=== PATIENT | male | born 1980 | race Caucasian/White ===

== ENCOUNTER 2022-05-18 04:24 | Emergency (ER) | payer MEDICAID, SELFPAY ==
[2022-05-18 04:28] VITALS: BP 152/99; PULSE 96; RESP 20; TEMP 36.2; O2SAT 98
--- NOTE | 2022-05-18 05:05 | ED.GENADUL_ITS ---
Discharge Plan Disposition Patient Disposition: HOME Condition: Stable Discharge Details Clinical Impression: Cellulitis of face, Facial skin lesion Primary Care Provider: Yakelin Berkowitz ED Provider: Bert Bartholomew Home Meds and New Rx's Prescriptions: New cephalexin 500 mg tablet 500 mg PO QID Qty: 28 0RF doxycycline hyclate 100 mg capsule 100 mg PO BID Qty: 14 0RF Continued gabapentin 300 mg Tablet 300 mg PO 3XD bupropion HCl 150 mg tablet extended release 24 hr 150 mg PO QDAY buprenorphine-naloxone [Suboxone] 8-2 mg film sublingual QDAY Rx Instructions: 2 film sublingually Discharge Instructions Instructions: Cellulitis (ED) Additional Instructions: Please take antibiotics as prescribed. Please contact your primary care physician to arrange follow-up. Please follow-up with dermatology. Call for an appointment. Return to the ER immediately for any worsening or new concerning symptoms. Referrals: Yakelin Berkowitz [Primary Care Provider] - Bhaskar Castro MD [MD CONSULTING PHYSICIAN] - Medical Decision Making 42-year-old male here with chronic facial skin lesion. Concern for acute cellulitis. Patient does have history of MRSA. I will cover with Keflex and doxycycline. We will also consider the potential for fungal infection or other chronic inflammatory condition. I think patient would benefit from dermatology evaluation. Patient is now living in the area. I will refer him to Dr. Castro at [facility]. Usual customary discharge instructions reviewed with the patient. Initial dose of antibiotic was provided here. Patient was given Tylenol for discomfort. HPI General Mode of arrival: ambulatory . Date/Time Provider Initiated Documentation: 05/18/22 04:26 . Limitations to Documentation: no limitations . Information obtained by: patient . HPI Narrative: 42-year-old male presents with chief complaint of skin lesion. Patient notes he has had lesion on his chin that has been waxing and waning for months. He states he first noticed the sore approximately 9 months ago. He has received unknown treatment i in the past for this. He states that he tries to scrub the area when he showers to clean it and also picks at it when he has had pustules. He has no associated fever. No other skin lesions. Patient does note that he has had diagnosis of MRSA in the past. Related Data Home Medications Medication Instructions Recorded Confirmed buprenorphine 8 mg-naloxone 2 mg sublingual QDAY 05/18/22 sublingual film (Suboxone) bupropion HCl 150 mg 24 hr tablet, 150 mg PO QDAY 05/18/22 05/18/22 extended release cephalexin 500 mg tablet 500 mg PO QID #28 tabs 05/18/22 doxycycline hyclate 100 mg capsule 100 mg PO BID #14 caps 05/18/22 gabapentin 300 mg tablet 300 mg PO 3XD 05/18/22 05/18/22 Previous Rx's Medication Instructions Recorded cephalexin 500 mg tablet 500 mg PO QID #28 tabs 05/18/22 doxycycline hyclate 100 mg capsule 100 mg PO BID #14 caps 05/18/22 Allergies Allergy/AdvReac Type Severity Reaction Status Date / Time atomoxetine HCl Allergy Mild Unverified 05/18/22 05:08 [From Strattera] ketorolac tromethamine Allergy Unknown Anaphylaxsi Unverified 05/18/22 05:08 [From Toradol] s General Stated Complaint: FacialProb CASIE: 4 Review of Systems All systems reviewed & are unremarkable except as noted in HPI and below Constitutional Constitutional: Denies fever(s) Integumentary/Breasts Skin/Breast: Reports as per HPI PFSH All Active Problems Cellulitis of face (Acute) Facial skin lesion (Acute) Social History Smoking/Tobacco Use Status: Current-Occasional Tobacco Type: cigarettes Smoking risk assessment performed?: Yes Alcohol Intake: former Drug use: Occasionally Substance use type: former substance user, marijuana, crack/cocaine, heroin, opiates and painkillers Do you feel safe at home: Yes Do you feel safe in your relationship?: Yes Exam Const General: cooperative and no acute distress HENMT Head: normocephalic Mouth: oral mucosae normal and moist mucous membranes Eyes Conjunctivae: normal conjunctivae Sclera: normal sclerae Neck Neck: trachea midline and supple Skin Lesions: lesion noted (see below) Other: Large weeping raised shallow ulcer on his chin with no fluctuance, mild surrounding induration and erythema Course Vital Signs Vital signs: Vital Signs Temperature 36.2 C L 05/18/22 04:28 Pulse 96 H 05/18/22 04:28 Respiratory Rate 20 05/18/22 04:28 Blood Pressure 152/99 H 05/18/22 04:28 Pulse Oximetry 98 05/18/22 04:28 Temperature 36.2 C L 05/18/22 04:28 Temperature Source Tympanic 05/18/22 04:28 Pulse 96 H 05/18/22 04:28 Respiratory Rate 20 05/18/22 04:28 Blood Pressure 152/99 H 05/18/22 04:28 Blood Pressure Position Sitting 05/18/22 04:28 Pulse Oximetry 98 05/18/22 04:28 Oxygen Delivery Method Room Air 05/18/22 04:28 Oxygen Flow Rate 0 05/18/22 04:28 Pain Level 6 05/18/22 04:45 PAWSS Have you Been Recently Intoxicated or Drunk Within the Last 30 days?: Yes Have you Ever Experienced Previous Episodes of Alcohol Withdrawal?: Yes Have you ever Experienced Withdrawal Seizures?: No Have you ever Experienced Delirium Tremens(DT)s?: Yes Have you ever undergone Alcohol Rehabilitation Treatment (i.e, inpt ot outpatient treatment programs)?: Yes Have you ever Experienced Blackouts?: No Have you ever Combined Alcohol with other Downers within the last 90 days?: Yes Have you ever Combined Alcohol with any other Substance of Abuse during the last 90 days?: Yes Positive Blood Alcohol level on Presentation? [PCS.BAL]: No Evidence of Increased Autonomic Activity (i.e. HR>120, tremor, sweating, agitation, nausea)?: No Result: 6
[2022-05-18] MEDS: Cephalexin 500 MG CAP PO (05:24)
[2022-05-18] MEDS: Doxycycline Hyclate 100 MG CAP PO (05:25)
[2022-05-18] MEDS: Acetaminophen 325 MG TAB 650 MG PO (05:25)
[2022-05-18 05:28] VITALS: BP 178/92; PULSE 91; RESP 16; TEMP 36.4; O2SAT 98
--- NOTE | 2022-05-19 11:58 | CMACTNOTE_ITS ---
- If Service Date Differs Date of service: 05/19/22 Time of Service: 11:58 Care Management Activity Note Chapo is seen in the ED for cellulitis of the face and facial skin lesion. At the request of ED provider, [facility] coordinates a referral to Dr. Castro at [facility] to assist Chapo in obtaining an appointment for further evaluation and treatment. Of note, Chapo does not have a phone number listed in his chart. A letter will be sent to him via mail reminded him to contact Dr. Castro's office to schedule an appointment.
== END 2022-05-18 05:41 | disposition home or self-care (01) ==
PROVIDERS: Emergency Provider Student in an Organized Health Care Education/Training Program; PCP Nurse Practitioner Family
DX: L03.211 Cellulitis of face (principal); L98.499 Non-pressure chronic ulcer of skin of other sites with unspecified severity; F17.210 Nicotine dependence, cigarettes, uncomplicated
CPT/HCPCS: 99283; 99284

== ENCOUNTER 2022-07-17 09:53 | Emergency (ER) | payer MEDICAID, SELFPAY ==
[2022-07-17 10:07] VITALS: BP 159/87; PULSE 85; RESP 18; TEMP 36.1; O2SAT 98
[2022-07-17 12:24] LABS: Abs Immature Grans 0.03 10^3/uL (0.0-0.06); Absolute Basophil Count 0.06 10^3/uL (0.0-0.2); Absolute Eosinophil Count 0.05 10^3/uL (0.0-0.7); Absolute Lymphocyte Count 1.63 10^3/uL (1.2-3.4); Absolute Monocyte Count 0.61 10^3/uL (0.1-0.8); Absolute Neutrophil Count 7.71 10^3/uL (1.2-6.7); Basophils % 0.6; Eosinophils % 0.5; HCT 37.9 % (40.0-50.0); HGB 13.1 g/dL (13.5-17.5); Immature Grans % 0.3; Lymphocytes % 16.2; MCH 30.3 pg (27.0-33.0); MCHC 34.6 % (32.0-36.0); MCV 88 fL (80-95); MPV 8.9 fL (8.0-11.0); Neutrophils % 76.4; Platelet Count 392 10^3/uL (130-400); RBC 4.32 10^6/uL (4.36-5.78); RDW 11.9 % (11.8-14.1); RDW-SD 38.2 fL; WBC 10.09 10^3/uL (4.4-10.8)
--- NOTE | 2022-07-17 12:47 | ED.GENADUL_ITS ---
Discharge Plan Disposition Patient Disposition: HOME Condition: Stable Discharge Details Clinical Impression: Polysubstance abuse, Homelessness Primary Care Provider: Yakelin Berkowitz ED Provider: Kathleen Fagan Home Meds and New Rx's Prescriptions: Continued gabapentin 300 mg Tablet 300 mg PO 3XD bupropion HCl 150 mg tablet extended release 24 hr 150 mg PO QDAY Discharge Instructions Additional Instructions: Please follow-up with the [facility] and found like you have an appointment and have resources You will receive 1 dose of Suboxone here Please return earlier should you have new or worsening complaints Referrals: Yakelin Berkowitz [Primary Care Provider] - 1 day Discharge Data Discharge Date/Time-TO BE ENTERED AT DEPARTURE: 07/17/22 16:03 Medical Decision Making Patient is alert and oriented, he is not forthcoming with any plan to harm himself and when asked regarding suicidality, he does not actually confirm this The ambulatory steady gait, he does not have evidence of any significant alcohol withdrawal with a blood alcohol of 0, he was observed for approximately 5 hours in the emergency department He was assessed by mental health and started screaming at them and requested voluntary placement at [facility], when asked why patient feels he needs it he states because he does not have a place to stay He does report alcohol and opiate use, he is set up with [facility] for next week reportedly He was offered pain and recovery who evaluates the patient and he refused to speak with them and they arrived He was given a dose of Suboxone to prevent opiate withdrawal Mental health assessment attempted again inpatient appears to be malingering, mental health feels as though the patient stable for discharge home Patient has not endorsed an actual plan to harm himself And that he seems to be speaking in place day He was offered a dose of Suboxone, Xanax, and he was discharged home in stable condition with stable vitals, alert and oriented with any obvious evidence of withdrawal symptoms noted in the emergency department He will follow-up with the [facility] Medical Records Medical records reviewed: Yes I reviewed the patient's medical records. Lab Data Lab results reviewed: Yes I reviewed the patient's lab results. HPI General Date/Time Provider Initiated Documentation: 07/17/22 10:26 . HPI Narrative: 42-year-old male presents with report of suicidal ideation without plan and polysubstance abuse. (2 days ago. Last used alcohol approximately 24 hours ago. Has had tremors with withdrawal but denies any additional symptoms. Specifically denies any seizure history. He states that he is injecting for the past week, prior to that he had a week of sobriety. Denies any attempt to harm Related Data Home Medications Medication Instructions Recorded Confirmed bupropion HCl 150 mg 24 hr tablet, 150 mg PO QDAY 05/18/22 07/17/22 extended release gabapentin 300 mg tablet 300 mg PO 3XD 05/18/22 07/17/22 Allergies Allergy/AdvReac Type Severity Reaction Status Date / Time atomoxetine HCl Allergy Mild Unverified 07/17/22 10:11 [From Strattera] ketorolac tromethamine Allergy Unknown Anaphylaxsi Unverified 07/17/22 10:11 [From Toradol] s General Stated Complaint: PsychEval CASIE: 2 Review of Systems All systems reviewed & are unremarkable except as noted in HPI and below PFSH All Active Problems Polysubstance abuse (Acute) Homelessness (Acute) Social History Smoking/Tobacco Use Status: Current-Occasional Tobacco Type: cigarettes Smoking risk assessment performed?: Yes Alcohol Intake: former Drug use: Never Substance use type: former substance user, marijuana, crack/cocaine, heroin, opiates and painkillers Do you feel safe at home: Yes Do you feel safe in your relationship?: Yes Exam Const General: cooperative, comfortable and no acute distress HENMT Head: normal to inspection Other: Uvula midline, no tongue fasciculations, moist mucous membrane Eyes Pupils: PERRL Resp Effort & Inspection: normal respiratory effort Auscultation: clear to auscultation bilaterally Cardio Rate: regular rate Rhythm: regular rhythm GI Inspection: normal to inspection Other: Nontender abdominal exam Skin General skin exam: no rashes or lesions noted Neuro General: patient alert and patient oriented x3 Other: No tremulousness Ambulatory with steady gait Extrem General: normal to inspection Course Vital Signs Vital signs: Vital Signs Temperature 36.1 C L 07/17/22 10:07 Pulse 85 07/17/22 10:07 Respiratory Rate 18 07/17/22 10:07 Blood Pressure 159/87 H 07/17/22 10:07 Pulse Oximetry 98 07/17/22 10:07 Temperature 36.1 C L 07/17/22 10:07 Temperature Source Tympanic 07/17/22 10:07 Pulse 85 07/17/22 10:07 Respiratory Rate 18 07/17/22 10:07 Respiratory Effort Non-Labored 07/17/22 10:09 Respiratory Pattern Normal 07/17/22 11:47 Blood Pressure 159/87 H 07/17/22 10:07 Blood Pressure Position Sitting 07/17/22 10:07 Pulse Oximetry 98 07/17/22 10:07 Oxygen Delivery Method Room Air 07/17/22 10:07 Oxygen Flow Rate 0 07/17/22 10:07 Pain Level 0 07/17/22 10:07 Lab/Test Results Lab/Test Results: Laboratory Tests Range/Units 07/17/22 12:19 WBC (4.4-10.8) 10^3/uL 10.09 RBC (4.36-5.78) 10^6/uL 4.32 L Hgb (13.5-17.5) g/dL 13.1 L Hct (40.0-50.0) % 37.9 L MCV (80-95) fL 88 MCH (27.0-33.0) pg 30.3 MCHC (32.0-36.0) % 34.6 RDW (11.8-14.1) % 11.9 Plt Count (130-400) 10^3/uL 392 MPV (8.0-11.0) fL 8.9 Immature Gran % 0.3 Neutrophils % 76.4 Lymphocytes % 16.2 Monocytes % 6.0 Eosinophils % 0.5 Basophils % 0.6 Nucleated RBC % (0.0-0.3) % 0.0 Absolute Neutrophils (1.2-6.7) 10^3/uL 7.71 H Absolute Lymphocytes (1.2-3.4) 10^3/uL 1.63 Absolute Monocytes (0.1-0.8) 10^3/uL 0.61 Absolute Eosinophils (0.0-0.7) 10^3/uL 0.05 Absolute Basophils (0.0-0.2) 10^3/uL 0.06 PAWSS Have you Been Recently Intoxicated or Drunk Within the Last 30 days?: Yes Have you Ever Experienced Previous Episodes of Alcohol Withdrawal?: Yes Have you ever Experienced Withdrawal Seizures?: Yes Have you ever Experienced Delirium Tremens(DT)s?: Yes Have you ever undergone Alcohol Rehabilitation Treatment (i.e, inpt ot outpatient treatment programs)?: Yes Have you ever Experienced Blackouts?: Yes Have you ever Combined Alcohol with other Downers within the last 90 days?: Yes Have you ever Combined Alcohol with any other Substance of Abuse during the last 90 days?: Yes Result: 8
[2022-07-17 12:53] LABS: ALT 18 U/L (16-63); AST 22 U/L (15-37); Albumin 3.3 g/dL (3.4-5.0); Alkaline Phosphatase 70 U/L (46-116); Anion Gap 8.3 mmol/L (3-11); BUN 16 mg/dL (7-18); Bilirubin, Total 0.2 mg/dL (0.2-1.0); CO2 27.7 mmol/L (21.0-32.0); CREATININE 0.9 mg/dL (0.70-1.30); Calcium 8.5 mg/dL (8.5-10.1); Chloride 104 mmol/L (98-107); Estimated GFR 108.01 (mL/min/1.73m2); Glucose 131 mg/dL (74-106); Potassium 3.7 mmol/L (3.5-5.1); Sodium 140 mmol/L (136-145); TSH (W/Ref FT4) 0.61 uIU/mL (0.36-3.74); Total Protein 7.1 g/dL (6.4-8.2)
[2022-07-17 12:54] LABS: ETHANOL BLOOD < 3.0 mg/dL (<10)
[2022-07-17] MEDS: LORazepam 1 MG TAB PO (12:57)
[2022-07-17 13:57] LABS: *AMPHETAMINES SCREEN URINE Negative (Negative); *BARBITURATES SCREEN URINE Negative (Negative); *BENZODIAZEPINES SCREEN URINE Negative (Negative); Cannabinoids THC Positive (Negative); Cocaine Screen,Urine Negative (Negative); METHADONE URINE SCREEN Negative (Negative); OPIATES URINE SCREEN Negative (Negative)
[2022-07-17 14:00] LABS: Tricyclic Antidepressants Negative (Negative)
--- NOTE | 2022-07-17 15:30 | CMSP_ITS ---
- If Service Date Differs Date of service: 07/17/22 Time of Service: 15:32 Care Management Safety Plan Status: Voluntary - Reason for Wait Reason for Wait: Inpatient Admission VOLUNTARY FOR INPATIENT PSYCHIATRIC STABILIZATION. Patient is appropriate in all interactions since arriving at [facility]; Pt has demonstrated appropriate coping and communication skills, has articulated his or her needs and concerns and is fully engaged during staff interactions. Safety plan has been established with patient, and care team, to adhere to patient goals, identify restrictions based on behavioral status, address nutrition, and determine allowed personal belongings, tools for hygiene and personal care. Determine level of activity including ambulation, level of supervision, visitors, and determine privileges based on behaviors and level of engagement by pt. SAFETY PLAN: 1. Will remain on suicide precautions. In Paper Clothes 2. Will remain in room under direct supervision of one-on-one staff at all times provided by [employer]; GARY, CORN SHREDDER receiving coordinator. 3. May have paper cups, plates, finger foods as well as a cardboard spoon with which to eat meals. 4. Follow [facility] Management of the Admitted Behavioral Health Patient policy. 5. Comfort bath system only, shower permitted with escort at RN discretion. 6. No personal belongings-soft items permitted at RN discretion. 7. Visitors-none at this time. 8. Activities: soft cart items approved per RN discretion. 9. Bathroom privileges with escort in the ED, available in room without limitation on M/S. 10. Phone: contact limited to family at this time, via cordless phone at RN discretion. 11. Due to VOLUNTARY status, if patient wishes to leave [facility], staff will contact [facility] Crisis Screener ([phone]) and On-Call Marshmallow Machine Worker ([phone]) as soon as possible. In the event of elopement, notify [place] [employer] ([phone]). Patient is currently voluntarily at [facility] and seeking inpatient admission when a bed becomes available. [facility] Frontline Spray Gun Operator will continue seeking placement. Please contact the Javascript Ui Developer Marshmallow Machine Worker ([phone]) and [facility] Spray Gun Operator ([phone]) for any needed changes in the Safety Plan. Safety plan has been provided to interdepartmental care team.
[2022-07-17] MEDS: Buprenorphine/Naloxone 4 mg/1 mg FILM 1 EACH SL (15:58)
--- NOTE | 2022-07-17 16:33 | PDOC.MHCN_ITS ---
Date of service: 07/17/22 Time of Service: 13:42 PHQ-9 Over the last 2 weeks, how often have you been bothered by any of the following problems? 1. Little interest or pleasure in doing things: nearly every day 2. Feeling down, depressed, or hopeless: nearly every day 3. Trouble falling or staying asleep, or sleeping too much: more than half the days 4. Feeling tired or having little energy: nearly every day 5. Poor appetite or overeating: nearly every day 6. Feeling bad about yourself - or that you are a failure or have let yourself and your family down: more than half the days 7. Trouble concentrating on things, such as reading the newspaper or watching television: nearly every day 8. Moving or speaking so slowly that other people could have noticed? - Or the opposite - being so fidgety or restless that you have been moving around a lot more than usual: more than half the days 9. Thoughts that you would be better off or of hurting yourself in some way: more than half the days Total score: 23 Source: Developed by Drs. Pj Urias, Jie Velarde, David Mckeon and colleagues, with an educational jaqui from [employer]. Suicide Severity Rate CSSRS Have you wished you were or wished you could go to sleep and not wake up?: Yes Have you actually had any thoughts of killing yourself?: Yes CSSRS2 Have you been thinking about how you might do this?: Yes Have you had these thoughts and had some intention of acting on them?: Yes Have you started to work out or worked out the details of how to kill yourself? Do you intend to carry out this plan?: Yes CSSRS3 Have you ever done anything, started to do anything or prepared to do anything to end your life?: Yes CSSRS4 Was this within the past three months?: Yes Screening Score Total Score: 8 Screening: Positive Mental Health Emergency Note Release [facility] release signed:: Yes Reason for Visit Client presented to ED after self-reports of intentional overdose on heroin two days prior In the last 2 weeks has the pt presented for ES prior to today?: Unknown Non Suicidal Self Injury Current: No History: No Safety Risk/Harm to Self or Others Current Ideation to Harm Self or Others: Yes to self. Intent: yes, has intent. Plan: no.does not have a plan. History of suicide attempt: yes,history of suicide attempt reported. Details of previous suicide attempt: Client's reports of suicide attempts are not consistent. Client reports he presented to ED due to intentional overdose two days prior, however when asked if he has a hx of past suicide attempts client reports no. Risk: Does risk to harm exist?: No Risk: Moderate Risk (Client is not consitent in his responses regarding SI. An accurate rating of risk is hard to diving judge regarding client's hx of SA.) Duty to warn indicated: No Asssessment/Mental Status Appearance: Disheveled Attitude: Guarded Behavior: Unremarkable Speech: Soft Affect: Flat and Cogruent with mood Mood: Elevated and Angry Thought process: Unremarkable Hallucinations: No Delusions: No Attention: Unremarkable Perception: Not impaired Orientation: Fully orientated Memory: Intact Insight: Fair Judgement: Good Neurovegetative Symptoms Sleep: No change Appetitie: No change Interests: No change Energy: No change Libido: Not applicable Substance Use: Have you used substances in the last 7 days?: yes, heroin Impression Client is an active client at [facility]. Although client is active, he has a hx of no call no shows to his recent appointment with OP services scheduled on his behalf. This advertising copy writer spoke with attending ORALIA Fagan prior to screening client to gain collateral information. Per Rylan report client presented to the ED for intentional overdose on heroin 2 days prior. Rylan reports client has past hx of polysubstance abuse. Rylan reports client is currently homeless. This advertising copy writer assessed client via zoom. Client appeared guarded and not fully forthcoming with this advertising copy writer. When this advertising copy writer asked client to elaborate on the reason he presented to the ED today client replied, I am feeling helpless, I want to go to [facility] and I don't have any where to sleep tonight. It should be noted half way during the screening, client became extremely escalated. Client began stating to this advertising copy writer in a yelling manner, you want to ask me all these questions I want to ask you these questions and get inside your brain and see how that makes you feel. This client became extremely agitated when this advertising copy writer was asking questions pertaining to his SI specifically. At this point in the conversation this advertising copy writer concluded the screening. This advertising copy writer than called the ED and spoke with Yoko to explain the reasoning for this advertising copy writer to remove self from the conversation. This advertising copy writer then spoke with ORALIA Fagan again to provide update on client becoming escalated. Rylan spoke with client and reported client was willing to engage in conversation with this advertising copy writer. Client reported to Rylan he was frustrated due to not being able to hear this advertising copy writer's questions. This advertising copy writer resumed screening with client via zoom. Client reports if he were to leave the ED tonight on a self rated of 0-10, 0 being not at all to 10 being 100% an 8, on how likely he would be to act on his SI. When this advertising copy writer asked client if he had a plan/intent when leaving the ED, client reports he did not have one, then responded after a brief pause, I would find whatever I could get my hands on. I just have thoughts, about going to bed and not wanting to wake up Client then proceeded to state, I have not had my suboxone in about a week and I need a place to stay tonight. This advertising copy writer asked if he would find talking to community partner [facility], client stated yes and requested for this to take place. Client expressed help to him would be getting housing and making a follow-up appointment with [facility]. This advertising copy writer spoke with Rylan and requested for consultation from [facility] be provided to client prior to discharge. Rylan called this advertising copy writer shortly after and reported client was willing to take literature on their services but did not wish to speak with them and was requesting to go to specifically. Based on client's guarded and goal directed responses pertaining to a place to sleep tonight. Client does not met criteria for IP MH tx, and appears like client would benefit greatly from SA tx. Resources [facility] reviewed and given:: Other ([facility] ) Plan/Disposition Recommended Disposition: [facility] Services (OP services ) [facility] Services: Other (OP services ) and Community resources (Connect with [facility] for SA). Plan: Client can be discharged from ED, follow-up with SA services such as [facility] as well as engage in OP services through [facility] at his discretion. Reports/communication Outcome discussed with: ED/Personnel (ORALIA Fagan )
== END 2022-07-17 16:03 | disposition home or self-care (01) ==
PROVIDERS: Emergency Provider Physician Assistant; PCP Nurse Practitioner Family
DX: F19.10 Other psychoactive substance abuse, uncomplicated (principal); Z59.00 Homelessness unspecified
CPT/HCPCS: 80053; 80307; 99283; 80320; 84443; 85025; 99284

== ENCOUNTER 2022-09-09 19:24 | Emergency (ER) | payer MEDICAID, SELFPAY ==
[2022-09-09 19:39] VITALS: BP 142/97; PULSE 91; RESP 16; TEMP 37.1; O2SAT 98
--- NOTE | 2022-09-09 20:15 | W.ED.GENAD ---
Discharge Plan Disposition Patient Disposition: Home Condition: Stable Discharge Details Clinical Impression: Cellulitis Primary Care Provider: Yakelin Berkowitz ED Provider: Deshawn Person Home Meds and New Rx's Prescriptions: New sulfamethoxazole-trimethoprim [Bactrim DS] 800-160 mg tablet 1 tab PO BID Qty: 14 0RF No Action gabapentin 300 mg Tablet 300 mg PO 3XD bupropion HCl 150 mg tablet extended release 24 hr 150 mg PO QDAY Discharge Instructions Instructions: Cellulitis (ED) Additional Instructions: Please fill your previously prescribed Keflex and take your new medication as well. If you develop any new or worsening symptoms return to the emergency department. Otherwise follow-up with your primary care provider. Referrals: Yakelin Berkowitz [Primary Care Provider] - 3 days (For reassessment of your wound) Discharge Data Discharge Date/Time-TO BE ENTERED AT DEPARTURE: 09/09/22 20:25 Medical Decision Making Patient presenting to the emergency department for chief complaint of right wrist infection. He states he had a bug bite on the distal radius and was recently seen in [facility] and was admitted for this infection. He was discharged yesterday but has been unable to fill his Keflex. He states continued infection. Patient afebrile with stable vital signs, no heart significant tachycardia or hypotension, and patient is afebrile. Physical exam shows localized swelling to the distal radius with contained erythema with diameter of circular wound approximately 2-1/2 cm no streaking erythema, full range of motion of wrist, exam otherwise unremarkable. Do not feel that patient had systemic infection or I do not have any concerns for osteomyelitis at this time. 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 Patient states he already has Keflex called into his pharmacy in [place] but was unable to pick it up today. Will give patient dose of Keflex here and to go bottle home and will also do the same for Bactrim to better cover for potential MRSA. Pending patient receiving his discharge information patient became upset and left the emergency department stating he did not want any of these medications and he would just leave and go somewhere else. Suspect that due to patient's homelessness he has secondary intention for coming to the emergency department. medical staff services coordinator did politely request patient to stay and receive his medication for his infection but he punched a wall hand sod stripper in the door and left. Patient alert and oriented and ambulatory at time of his departure. HPI General Mode of arrival: ambulatory. Date/Time Provider Initiated Documentation: 09/09/22 20:06. Limitations to Documentation: no limitations. Information obtained by: patient and RN notes reviewed. History of Present Illness 42 year old M presents to the emergency department with the chief complaint of Right wrist infection, described as moderate and similar to prior episodes, with intensity rated at 4. Quality is described as aching, and is localized to the right and upper extremity. Patient reports no radiation. Patient started experiencing this day(s) (5) and it has been constant. No relieving factors improve symptom(s), No exacerbating factors reported . Patient notes no other symptoms.. Related Data Home Medications Medication Instructions Recorded Confirmed bupropion HCl 150 mg 24 hr tablet, 150 mg PO QDAY 05/18/22 07/17/22 extended release gabapentin 300 mg tablet 300 mg PO 3XD 05/18/22 07/17/22 sulfamethoxazole 800 1 tab PO BID #14 tabs 09/09/22 mg-trimethoprim 160 mg tablet (Bactrim DS) Previous Rx's Medication Instructions Recorded sulfamethoxazole 800 1 tab PO BID #14 tabs 09/09/22 mg-trimethoprim 160 mg tablet (Bactrim DS) Allergies Allergy/AdvReac Type Severity Reaction Status Date / Time atomoxetine HCl Allergy Mild Unverified 07/17/22 10:11 [From Strattera] ketorolac tromethamine Allergy Unknown Anaphylaxsi Unverified 07/17/22 10:11 [From Toradol] s General Stated Complaint: RashLesion CASIE: 3 Review of Systems Narrative: 8 systems reviewed and unremarkable except what is marked below. Constitutional Constitutional: Denies chills and Denies fever(s) Musculoskeletal Musculoskeletal: Reports as per HPI, Reports joint swelling and Denies limited range of motion Integumentary/Breasts Skin/Breast: Reports as per HPI and Reports non-healing lesions PFSH All Active Problems Cellulitis (Acute) Social History Smoking/Tobacco Use Status: Current-Occasional Tobacco Type: cigarettes Smoking risk assessment performed?: Yes Alcohol Intake: former Drug use: Never Substance use type: former substance user, marijuana, crack/cocaine, heroin, opiates and painkillers Do you feel safe at home: Yes Do you feel safe in your relationship?: Yes Exam Const General: cooperative, no acute distress and not ill appearing Orientation: alert, awake and oriented x3 HENMT Mouth: moist mucous membranes Resp Effort & Inspection: normal respiratory effort, able to speak in complete sentences and no respiratory distress Auscultation: clear to auscultation bilaterally Cardio Rate: regular rate Rhythm: regular rhythm Heart Sounds: S1 normal and S2 normal Neuro General: patient alert, patient awake, patient oriented x3, moves all extremities and no focal motor deficits Sensory Exam: no sensory deficits noted Extrem General: normal exam except as noted Right upper extremity: wrist Details: abnormal to inspection (Open wound to superficial tissue above distal radius) Details: erythema, tenderness Location: of the distal radius, normal ROM and normal vascular exam Course Vital Signs Vital signs: Vital Signs Temperature 37.1 C 09/09/22 19:39 Pulse 91 H 09/09/22 19:39 Respiratory Rate 16 09/09/22 19:39 Blood Pressure 142/97 H 09/09/22 19:39 Pulse Oximetry 98 09/09/22 19:39 Temperature 37.1 C 09/09/22 19:39 Temperature Source Tympanic 09/09/22 19:39 Pulse 91 H 09/09/22 19:39 Respiratory Rate 16 09/09/22 19:39 Respiratory Effort 09/09/22 19:46 Blood Pressure 142/97 H 09/09/22 19:39 Blood Pressure Position Sitting 09/09/22 19:39 Pulse Oximetry 98 09/09/22 19:39 Oxygen Delivery Method Room Air 09/09/22 19:39 Oxygen Flow Rate 0 09/09/22 19:39 Pain Level 4 09/09/22 19:39
== END 2022-09-09 20:25 | disposition home or self-care (01) ==
PROVIDERS: Emergency Provider Nurse Practitioner Family; PCP Nurse Practitioner Family
DX: S60.861A Insect bite (nonvenomous) of right wrist, initial encounter (principal); L03.113 Cellulitis of right upper limb
CPT/HCPCS: 99283

== ENCOUNTER 2024-04-04 05:49 | Emergency (ER) | payer MEDICAID, SELFPAY ==
[2024-04-04 05:53] VITALS: BP 165/107; PULSE 70; RESP 14; TEMP 37.1; O2SAT 96
[2024-04-04 05:59] VITALS: BP 165/107; PULSE 70; RESP 14; TEMP 37.1; O2SAT 96
--- NOTE | 2024-04-04 06:06 | ED.GENADUL_ITS ---
Discharge Plan Discharge Details Chief Complaint: PsychEval Clinical Impression: Suicidal ideation Primary Care Provider: Yakelin Berkowitz ED Provider: Krishna Law Home Meds and New Rx's Prescriptions: No Action gabapentin 300 mg Tablet 100 mg PO TID bupropion HCl 150 mg tablet extended release 24 hr 150 mg PO QDAY methadone 10 mg/mL concentrate 110 mg PO DAILY HPI General Date/Time Provider Initiated Documentation: 04/04/24 05:50 . HPI Narrative: This is a pleasant 44-year-old male with a past medical history of alcohol use, methadone use, prior drug use, prior depression and suicidality, who presents today for evaluation of thoughts of self-harm. Patient states that he was at [facility] in the past, he was most recently admitted for mental health observation in [place] a month ago. Patient states that he has not had his me thadone for the last 2 or 3 days, today he has had thoughts of self-harm stating that his thoughts include wanting to end his life by overdosing on drugs or alcohol. He did drink alcohol yesterday. No alcohol today. He denies any homicidal ideations. He denies any auditory or visual hallucinations. He is currently homeless. No other complaints at this time. No other modifying factors. Related Data Home Medications ?Medication ?Instructions ?Recorded ?Confirmed bupropion HCl 150 mg 24 hr tablet, 150 mg PO QDAY 05/18/22 04/04/24 extended release gabapentin 300 mg tablet 100 mg PO TID 05/18/22 04/04/24 methadone 10 mg/mL oral concentrate 110 mg PO DAILY 04/04/24 04/04/24 Allergies Allergy/AdvReac Type Severity Reaction Status Date / Time atomoxetine HCl (From Allergy Mild Unknown Verified 04/04/24 06:48 Strattera) ketorolac tromethamine (From Allergy Unknown Anaphylaxsi Verified 04/04/24 06:48 Toradol) s General Stated Complaint: PsychEval CASIE: 2 Review of Systems All systems reviewed & are unremarkable except as noted in HPI and below Exam Narrative Exam Narrative: 1.Const: Well-nourished, Well-developed, appearing stated age 2.Eyes: PERRL, no conjunctival injection, and symmetrical lids. 3.ENT: Atraumatic external nose and ears. Moist MM. Neck: Symmetric, trachea midline, No thyromegaly. 4.CVS: +S1/S2, No murmurs or gallops. Peripheral pulses 2+ and equal in all extremities. Brisk capillary refill in all extremities. 5.RESP: Unlabored respiratory effort. Clear to auscultation bilaterally. No wheezes rales or rhonchi 6.GI: Soft, Nontender/Nondistended, No hepatosplenomegaly. No guarding or rebound. 7.MSK: Normocephalic/Atraumatic, Extremities w/o deformity or ttp No cyanosis or clubbing, Normal movement of all extremities 8.Skin: Warm, Dry. No rashes or lesions. 9.Neuro: adoption coordinator II-XII grossly intact. Sensation grossly intact, no focal neurologic deficits. 10.Psych: (AAO) x3. Appropriate mood and affect Course Vital Signs Vital signs: Vital Signs Temperature 37.1 C 04/04/24 05:53 Pulse 70 04/04/24 05:53 Respiratory Rate 14 04/04/24 05:53 Blood Pressure 165/107 H 04/04/24 05:53 Pulse Oximetry 96 04/04/24 05:53 Temperature 37.1 C 04/04/24 05:59 Temperature Source Temporal Artery Scan 04/04/24 05:53 Pulse 70 04/04/24 05:59 Respiratory Rate 14 04/04/24 05:59 Blood Pressure 165/107 H 04/04/24 05:59 Pulse Oximetry 96 04/04/24 05:59 Oxygen Delivery Method Room Air 04/04/24 05:53 Oxygen Flow Rate 0 04/04/24 05:53 Pain Level 4 04/04/24 05:59 Comment General pain, withdrawal 04/04/24 05:53 Medical Decision Making This is a pleasant 44-year-old male with a past medical history of alcohol use, methadone use, prior drug use, prior depression and suicidality, who presents today for evaluation of thoughts of self-harm. Patient states that he was at [facility] in the past, he was most recently admitted for mental health observation in [place] a month ago. Patient states that he has not had his methadone for the last 2 or 3 days, today he has had thoughts of self-harm stating that his thoughts include wanting to end his life by overdosing on drugs or alcohol. He did drink alcohol yesterday. No alcohol today. He denies any homicidal ideations. He denies any auditory or visual hallucinations. He is currently homeless. No other complaints at this time. No other modifying factors. Exam demonstrates well-appearing male, no acute distress. Methadone dose of 110 mg confirmed with the [facility]. Will consult mental health, medically clear, monitor closely and reassess. 7:22 AM Patient is medically cleared, vital signs stable. Methadone has been given and scheduled medications have been ordered. Mental health has assessed the patient and they recommend inpatient admission. Patient will be transition to [facility] and signed out to my colleague for final disposition. Quality:SDOH Health Related Social Needs: Health related social needs risk of homeless, inadequa te housing, material hardship, food insecurity, transpo insecurity, personal safety PFSH All Active Problems (Updated 04/04/24 @ 07:23 by Krishna Law DO) Suicidal ideation (Acute) Social History Smoking/Tobacco Use Status: Current-Occasional Tobacco Type: cigarettes Smoking risk assessment performed?: Yes Alcohol Intake: current Alcohol Intake frequency: 3 or more drinks per day Alcohol type: beer and hard liquor Drug use: Daily Substance use type: former substance user, marijuana, crack/cocaine, heroin, opiates and painkillers Housing: homeless Do you feel safe at home: Yes Do you feel safe in your relationship?: Yes PAWSS Have you Been Recently Intoxicated or Drunk Within the Last 30 days?: Yes Have you Ever Experienced Previous Episodes of Alcohol Withdrawal?: Yes Have you ever Experienced Withdrawal Seizures?: Yes Have you ever Experienced Delirium Tremens(DT)s?: Yes Have you ever undergone Alcohol Rehabilitation Treatment (i.e, inpt ot outoh tient treatment programs)?: Yes Have you ever Experienced Blackouts?: Yes Have you ever Combined Alcohol with other Downers within the last 90 days?: No Have you ever Combined Alcohol with any other Substance of Abuse during the last 90 days?: Yes Positive Blood Alcohol level on Presentation? [PCS.BAL]: Unable to Obtain Evidence of Increased Autonomic Activity (i.e. HR>120, tremor, sweating, agitation, nausea)?: Yes Result: 9
[2024-04-04 06:29] LABS: Abs Immature Grans 0.03 10^3/uL (0.0-0.06); Absolute Basophil Count 0.06 10^3/uL (0.0-0.2); Absolute Eosinophil Count 0.29 10^3/uL (0.0-0.7); Absolute Lymphocyte Count 2.39 10^3/uL (1.2-3.4); Absolute Neutrophil Count 5.05 10^3/uL (1.2-6.7); Basophils % 0.7 %; Eosinophils % 3.4 %; HCT 36.5 % (40.0-50.0); HGB 12.2 g/dL (13.5-17.5); Immature Grans % 0.4 %; Lymphocytes % 28.1 %; MCH 29.8 pg (27.0-33.0); MCHC 33.4 % (32.0-36.0); MCV 89 fL (80-95); MPV 9.2 fL (8.0-11.0); Monocytes % 8.2 %; Neutrophils % 59.2 %; Platelet Count 291 10^3/uL (130-400); RBC 4.09 10^6/uL (4.36-5.78); RDW 12.8 % (11.8-14.1); RDW-SD 41.7 fL; WBC 8.52 10^3/uL (4.4-10.8)
[2024-04-04 06:49] LABS: Acetaminophen < 2 ug/mL (10-30); Salicylate < 2.8 mg/dL (<2.8)
[2024-04-04 06:53] LABS: ALT 46 U/L (16-63); AST 26 U/L (15-37); Albumin 3.2 g/dL (3.4-5.0); Alkaline Phosphatase 90 U/L (46-116); Anion Gap 7.3 mmol/L (3-11); BUN 16 mg/dL (7-18); Bilirubin, Total 0.33 mg/dL (0.2-1.0); CO2 29.7 mmol/L (21.0-32.0); CREATININE 0.9 mg/dL (0.70-1.30); Calcium 8.3 mg/dL (8.5-10.1); Chloride 102 mmol/L (98-107); Estimated GFR 106.67 (mL/min/1.73m2); Glucose 103 mg/dL (74-106); Potassium 3.5 mmol/L (3.5-5.1); Sodium 139 mmol/L (136-145); TSH (W/Ref FT4) 2.79 uIU/mL (0.36-3.74)
[2024-04-04 07:04] LABS: ETHANOL BLOOD < 3.0 mg/dL (<10)
[2024-04-04 07:16] LABS: *AMPHETAMINES SCREEN URINE Negative (Negative); *BARBITURATES SCREEN URINE Positive (Negative); *BENZODIAZEPINES SCREEN URINE Negative (Negative); Cannabinoids THC Positive (Negative); Cocaine Screen,Urine Positive (Negative); METHADONE URINE SCREEN Positive (Negative); OPIATES URINE SCREEN Negative (Negative)
[2024-04-04 07:30] LABS: Tricyclic Antidepressants Negative (Negative)
[2024-04-04] MEDS: Methadone Liquid 10 MG/ML 110 MG PO (07:52)
[2024-04-04] MEDS: Gabapentin 100 MG CAP PO ×2 (08:05→13:55)
[2024-04-04] MEDS: buPROPion-XL 150 MG TABCR PO (08:05)
--- NOTE | 2024-04-04 13:24 | ED.PROG_ITS ---
Date of service: 04/04/24 Time of Service: 13:24 Medical Decision Making Care was signed out by Dr. Law, please see his documentation regarding prior ED course. Patient had been medically cleared at time of signout. Patient awaiting inpatient psychiatric treatment placement. I received call from Batsheva Mcmullen at [facility], discussed ED course, she will except the patient in transfer. Quality:SDOH Health Related Social Needs: Health related social needs risk of homeless, inadequa te housing, material hardship, food insecurity, transpo insecurity, personal safety Sign Out Sign Out Data: Sign Out Comment: Depression, suicidality, pending placement, regular meds ordered Last updated by Krishna Law DO at 04/04/24 07:27 Discharge Plan Disposition Patient Disposition: Psychiatric Hospital/Unit Specific Psychiatric Facility: [facility] Hospital Condition: Serious Discharge Details Clinical Impression: Suicidal ideation Primary Care Provider: Yakelin Berkowitz ED Provider: Bert Bartholomew Gonzales Meds and New Rx's Prescriptions: No Action gabapentin 300 mg Tablet 100 mg PO TID bupropion HCl 150 mg tablet extended release 24 hr 150 mg PO QDAY methadone 10 mg/mL concentrate 110 mg PO DAILY Discharge Data Discharge Date/Time-TO BE ENTERED AT DEPARTURE: 04/04/24 18:29
== END 2024-04-04 18:29 ==
PROVIDERS: Student in an Organized Health Care Education/Training Program; Emergency Provider Student in an Organized Health Care Education/Training Program; PCP Nurse Practitioner Family
DX: R45.851 Suicidal ideations (principal); F10.90 Alcohol use, unspecified, uncomplicated; Z79.891 Long term (current) use of opiate analgesic; Z59.00 Homelessness unspecified; Z59.41 Food insecurity; Z59.82 Transportation insecurity
CPT/HCPCS: 00123; 36415; 80053; 80307; 99285; 80320; 80329; 84443; 85025

== ENCOUNTER 2024-10-05 05:02 | Emergency (ER) | payer MEDICAID, SELFPAY ==
[2024-10-05 05:20] VITALS: BP 104/78; PULSE 76; RESP 16; TEMP 36.4; O2SAT 99
--- NOTE | 2024-10-05 05:27 | ED.GENADUL_ITS ---
Discharge Plan Discharge Details Chief Complaint: PsychEval Clinical Impression: Suicidal ideation Primary Care Provider: Yakelin Berkowitz ED Provider: Ifrah Salgado Home Meds and New Rx's Prescriptions: No Action gabapentin 300 mg Tablet 100 mg PO TID bupropion HCl 150 mg tablet extended release 24 hr 150 mg PO QDAY methadone 10 mg/mL concentrate 110 mg PO DAILY HPI General Mode of arrival: ambulatory . Date/Time Provider Initiated Documentation: 10/05/24 05:05 . Limitations to Documentation: no limitations . Information obtained by: patient . HPI Narrative: 44yo M with hx ETOH and opiate use disorder, depression, presenting for suicidal ideation. Plan to overdose on alcohol and 'drugs'. Prior suicide attempts via same method. Prior psychiatric hospitalization at [facility]. Denies illicit drug use today or yesterday; did use cocaine a few days ago. Last ETOH yesterday evening. Denies any other ingestions. Does report a history of alcohol withdrawal in the past, not sure if withdrawal seizures. Denies HI, AH, VH. No physical complaints. He does report that earlier in the day while intoxicated he fell and struck his head; did not lose consciousness. No headache, nausea, vomiting, numbness, tingling, weakness, vertigo. Otherwise in his usual state of health with no fevers, chills, rash, abdominal pain, chest pain, shortness of breath, or other concerns. Related Data Home Medications ?Medication ?Instructions ?Recorded ?Confirmed bupropion HCl 150 mg 24 hr tablet, 150 mg PO QDAY 05/18/22 10/05/24 extended release gabapentin 300 mg tablet 100 mg PO TID 05/18/22 10/05/24 methadone 10 mg/mL oral concentrate 110 mg PO DAILY 04/04/24 10/05/24 Allergies Allergy/AdvReac Type Severity Reaction Status Date / Time atomoxetine HCl (From Allergy Mild Unknown Verified 10/05/24 05:54 Strattera) ketorolac tromethamine (From Allergy Unknown Anaphylaxsi Verified 10/05/24 05:54 Toradol) s General CASIE: 2 Review of Systems Narrative: see HPI Exam Narrative Exam Narrative: General: Alert, well appearing, well nourished, in no acute distress. Head: Normocephalic. Erythema to left forehead, otherwise atraumatic. Neck: Trachea midline, ?Neck supple. No midline cervical spinal tenderness. Full pain free ROM with flexion, extension, and lateral rotation ENT: ?MMM.? No oropharygeal lesions or exudate. Cardiac: ?RRR, no murmurs appreciated Resp: No respiratory distress. CTAB. Abd: ?Soft, non-distended, nontender : ?No suprapubic tenderness. No CVA tenderness. Extremities: ?No deformities.? No peripheral edema. Neuro: ? GCS 15.? PERRL.? EOMI.? Fluent speech, no dysarthria. Motor- 5/5 strength symmetric bilateral upper and lower extrmeties including shoulder abductors/adductors, elbow flexors/extensors, wrist flexors/extensors, finger abductors/adductors, hipflexors/extensors, knee flexors/extensors, ankle dorsiflexors and planter flexors. Sensation- ?Intact to light touch and symmetric multiple dermatomes including upper and lower extremities Coordination- No dysmetria on finger to nose Reflexes- 2/4 achilles & patellar, no clonus Gait/station: ?Normal stance.? No truncal ataxia. Steady gait with equal normal steps CRANIAL NERVES: II: Pupils equal and reactive, III, IV, : EOM intact, no gaze preference or deviation, no nystagmus. V: normal sensation in V1, V2, and V3 segments bilaterally VII: no asymmetry, no nasolabial fold flattening VIII: normal hearing to speech IX, X: normal palatal elevation, no uvular deviation XI: 5/5 head turn and 5/5 shoulder shrug bilaterally XII: midline tongue protrusion Psych: Calm, cooperative.? Adequate grooming.? Mood bad, affect flat.? Speech soft with normal rate, rythym and tone. Linear and goal directed.? + SI with plan to OD; deniesHI/AH/VH. ? Does not appear to be responding to internal stimuli. No psychomotor slowing or agitation. No abnormal movements noted. Medical Decision Making 44yo M with hx ETOH and opiate use disorder, depression, presenting for suicidal ideation with plan to overdose on alcohol and 'drugs'. Vital signs reassuring on arrival. Flat affect, does not appear to be responding to internal stimuli. He does report a head injury today and has some faint erythema to his left forehead. Clinicaly sober with normal neurologic exam. Would not get CT imaging of head or C-spine. Changed into paper scrubs and safety sit ordered. Home meds ordered aside from methadone (will need to confirm dose this morning). Plan for q4 CIWA. Will give scheduled librium prophylactically. Screening labs reviewed as below, CBC reassuring, CMP with no actionable abnormalities, serum tox negative. Medically cleared. [facility] to evaluate patient. Will be signed out to oncoming physician, plan to followup [facility] reccs. Lab Data Lab results reviewed: Yes I reviewed the patient's lab results. Labs: Laboratory Tests Range/Units 10/05/24 05:53 WBC (4.4-10.8) 10^3/uL 12.01 H RBC (4.36-5.78) 10^6/uL 4.48 Hgb (13.5-17.5) g/dL 13.7 Hct (40.0-50.0) % 41.0 MCV (80-95) fL 92 MCH (27.0-33.0) pg 30.6 MCHC (32.0-36.0) % 33.4 RDW (11.8-14.1) % 13.2 Plt Count (130-400) 10^3/uL 278 MPV (8.0-11.0) fL 8.9 Immature Gran % % 0.7 Neutrophils % % 80.4 Lymphocytes % % 12.7 Monocytes % % 4.9 Eosinophils % % 0.9 Basophils % % 0.4 Nucleated RBC % (0.0-0.3) % 0.0 Absolute Neutrophils (1.2-6.7) 10^3/uL 9.66 H Absolute Lymphocytes (1.2-3.4) 10^3/uL 1.53 Absolute Monocytes (0.1-0.8) 10^3/uL 0.59 Absolute Eosinophils (0.0-0.7) 10^3/uL 0.11 Absolute Basophils (0.0-0.2) 10^3/uL 0.05 Sodium (136-145) mmol/L 141 Potassium (3.5-5.1) mmol/L 3.8 Chloride (98-107) mmol/L 105 Carbon Dioxide (21.0-32.0) mmol/L 30.8 Anion Gap (3-11) mmol/L 5.2 BUN (7-18) mg/dL 13 Creatinine (0.70-1.30) mg/dL 0.8 Est GFR (CKD-EPI 2020) (mL/min/1.73m2) 110.53 Glucose (74-106) mg/dL 94 Calcium (8.5-10.1) mg/dL 8.5 Total Bilirubin (0.2-1.0) mg/dL 0.29 AST (15-37) U/L 25 ALT (16-63) U/L 23 Alkaline Phosphatase (46-116) U/L 89 Total Protein (6.4-8.2) g/dL 7.5 Albumin (3.4-5.0) g/dL 3.7 Salicylates (<2.8) mg/dL 3.4 Acetaminophen (10-30) ug/mL < 2 Ethyl Alcohol (<10) mg/dL < 3.0 Quality:SDOH Health Related Social Needs: Health related social needs problems related to housin g/economic circumstances (Z59.89) PFSH All Active Problems (Updated 10/05/24 @ 05:38 by Ifrah Salgado MD) Suicidal ideation (Acute) Social History Smoking/Tobacco Use Status: Current-Occasional Tobacco Type: cigarettes Smoking risk assessment performed?: Yes Alcohol Intake: current Alcohol Intake frequency: 3 or more drinks per day Alcohol type: beer and hard liquor Drug use: Occasionally Substance use type: marijuana, crack/cocaine, heroin, opiates and painkillers Housing: homeless Do you feel safe at home: Yes Do you feel safe in your relationship?: Yes
[2024-10-05 06:00] LABS: Abs Immature Grans 0.09 10^3/uL (0.0-0.06); Absolute Basophil Count 0.05 10^3/uL (0.0-0.2); Absolute Eosinophil Count 0.11 10^3/uL (0.0-0.7); Absolute Lymphocyte Count 1.53 10^3/uL (1.2-3.4); Absolute Monocyte Count 0.59 10^3/uL (0.1-0.8); Basophils % 0.4 %; Eosinophils % 0.9 %; HGB 13.7 g/dL (13.5-17.5); Immature Grans % 0.7 %; Lymphocytes % 12.7 %; MCH 30.6 pg (27.0-33.0); MCHC 33.4 % (32.0-36.0); MCV 92 fL (80-95); MPV 8.9 fL (8.0-11.0); Monocytes % 4.9 %; Neutrophils % 80.4 %; Platelet Count 278 10^3/uL (130-400); RBC 4.48 10^6/uL (4.36-5.78); RDW 13.2 % (11.8-14.1); RDW-SD 43.7 fL; WBC 12.01 10^3/uL (4.4-10.8)
[2024-10-05 06:02] LABS: Absolute Neutrophil Count 9.66 10^3/uL (1.2-6.7)
[2024-10-05 06:22] LABS: Salicylate 3.4 mg/dL (<2.8)
[2024-10-05 06:26] LABS: ALT 23 U/L (16-63); AST 25 U/L (15-37); Acetaminophen < 2 ug/mL (10-30); Albumin 3.7 g/dL (3.4-5.0); Alkaline Phosphatase 89 U/L (46-116); Anion Gap 5.2 mmol/L (3-11); BUN 13 mg/dL (7-18); Bilirubin, Total 0.29 mg/dL (0.2-1.0); CO2 30.8 mmol/L (21.0-32.0); CREATININE 0.8 mg/dL (0.70-1.30); Calcium 8.5 mg/dL (8.5-10.1); Chloride 105 mmol/L (98-107); Estimated GFR 110.53 (mL/min/1.73m2); Glucose 94 mg/dL (74-106); Potassium 3.8 mmol/L (3.5-5.1); Sodium 141 mmol/L (136-145); Total Protein 7.5 g/dL (6.4-8.2)
[2024-10-05 06:28] LABS: ETHANOL BLOOD < 3.0 mg/dL (<10)
[2024-10-05] MEDS: Methadone Liquid 10 MG/ML 110 MG PO (08:30)
[2024-10-05] MEDS: buPROPion-XL 150 MG TABCR PO (08:33)
[2024-10-05] MEDS: Gabapentin 100 MG CAP PO ×3 (08:33→19:54)
[2024-10-05] MEDS: chlordiazePOXIDE 25 MG CAP PO ×3 (08:33→19:54)
--- NOTE | 2024-10-05 08:43 | PDOC.MHCN ---
Date of service: 10/05/24 Time of Service: 08:00 PHQ-9 Over the last 2 weeks, how often have you been bothered by any of the following problems? 1. Little interest or pleasure in doing things: not at all 2. Feeling down, depressed, or hopeless: more than half the days 3. Trouble falling or staying asleep, or sleeping too much: several days 4. Feeling tired or having little energy: more than half the days 5. Poor appetite or overeating: several days 6. Feeling bad about yourself - or that you are a failure or have let yourself and your family down: not at all 7. Trouble concentrating on things, such as reading the newspaper or watching television: nearly every day 8. Moving or speaking so slowly that other people could have noticed? - Or the opposite - being so fidgety or restless that you have been moving around a lot more than usual: nearly every day 9. Thoughts that you would be better off or of hurting yourself in some way: several days Total score: 13 If you checked off any problems, how difficult have these problems made it for you to do your work, take care of things at home, or get along with other people?: somewhat difficult PHQ-9 Results: Positive Source: Developed by Drs. Pj Urias, Jie Velarde, David Mckeon and colleagues, with an educational jaqui from [employer]. Suicide Severity Rate CSSRS Have you wished you were or wished you could go to sleep and not wake up?: Yes CSSRS2 Have you been thinking about how you might do this?: Yes Have you had these thoughts and had some intention of acting on them?: Yes Have you started to work out or worked out the details of how to kill yourself? Do you intend to carry out this plan?: Yes CSSRS3 Have you ever done anything, started to do anything or prepared to do anything to end your life?: No CSSRS4 Was this within the past three months?: No Screening Score Total Score: 2 Screening: Positive Mental Health Emergency Note Release [facility] release signed:: Yes Reason for Visit The client is known to [facility]. Per chart review the client has been assessed in emergency services and has gone to inpatient treatment each time. The client has been referred to outpatient services, however each time he is referred it appears that he does not follow through with appointments. This morning the client presents to [facility] ED reporting that he does not feel safe and is endorsing both suicidal and homicidal ideations. This va underwriter meets with the client via telehealth from zone b at [facility] ED. In the last 2 weeks has the pt presented for ES prior to today?: No Client Information Client is: New Well Housed: No,status: Homeless Stable housing Non Suicidal Self Injury Current: No History: No Safety Risk/Harm to Self or Others Current Ideation to Harm Self or Others: Yes to self. Intent: yes, has intent. Plan: yes,has a plan. History of suicide attempt: No history of suicide attempt reported and to others. Intent: No Plan: no, does not have a plan. History of becoming violent with another person(any age): no history of violence with others. Risk: Does risk to harm exist?: No Risk: Moderate Risk Duty to warn indicated: No Asssessment/Mental Status Appearance: Disheveled Attitude: Cooperative Behavior: Unremarkable Speech: Normal Affect: Flat Mood: Depressed Thought process: Unremarkable Hallucinations: No Delusions: No Attention: Unremarkable Perception: Not impaired Orientation: Fully orientated Memory: Intact Insight: Fair Judgement: Fair Neurovegetative Symptoms Sleep: Decrease Appetitie: Decrease Interests: Decrease Energy: Decrease Libido: Not applicable Substance Use: ETOH dependence Drug Issues: Dependence Do you use nicotine?: Yes Have you used substances in the last 7 days?: yes, The client reports daily use of alcohol, marijuana, and cocaine. Additional Issues: Assaultive/Threatening Behavior: No Medical Concerns: No Client engaged in active self harm w/weapon: No Threatening to run away: No Child reported abuse/neglect: No Voluntarily presenting for services: Yes Domestic violence is a concern: No Extreme Psychosis or extreme behavior is present: No Impression The client is a single 44 y/o male that is currently homeless, but has been staying in [place], [place]. The client is currently unemployed. The client identifies as male and uses he/him pronouns. All screening tools are completed and all under represented categories are honored. CAMS is not initiated during this assessment as this va underwriter does not feel like it is appropriate. The client presents with symptoms most congruent to major depressive disorder as evidenced by self-report, loss of interest in things that typically bring him eusebio, passive suicidal and homicidal ideations, and decrease in both sleep and appetite. The client reports that he is endorsing suicidal ideations with plan to overdose and rates his intent on a Likert rating scale a 8/10. Based on this writers assessment the client is meeting criteria for a higher level of care currently. Resources Reosurces reviewed and given:: 988, Crisis Bed and [facility] Plan/Disposition Recommended Disposition: Hospitalization (Referrals will be faxed to all hospitals) No. Plan: Based on this writers assessment the client is meeting criteria for a higher level of care at this time. The client will remain at [facility] ED on voluntary status pending placement in an inpatient facility. The client will be assessed daily by [facility] ES until placement is secured or the client is able to be safety planned back to the community. Referrals will be faxed to all facilities including , [facility], , and [facility] transfer station. Person reported agreement to plan: Yes Reports/communication Outcome discussed with: ED/Personnel (Verbal passover given to ED provider Dr. Woodruff and [facility] b nurse Dubon)
--- NOTE | 2024-10-05 09:33 | ED.PROG_ITS ---
Date of service: 10/05/24 Time of Service: 09:33 Medical Decision Making Patient seeking voluntary placement for depression and thoughts of self-harm, no new acute issues. Will continue to monitor until safe disposition found Quality:SDOH Health Related Social Needs: Health related social needs problems related to housin g/economic circumstances (Z59.89) Discharge Plan Discharge Details Chief Complaint: PsychEval Clinical Impression: Suicidal ideation Primary Care Provider: Yakelin Brekowitz ED Provider: Sarmad Woodruff Home Meds and New Rx's Prescriptions: No Action gabapentin 300 mg Tablet 100 mg PO TID bupropion HCl 150 mg tablet extended release 24 hr 150 mg PO QDAY methadone 10 mg/mL concentrate 110 mg PO DAILY
--- NOTE | 2024-10-05 13:05 | PDOC.CMSAFE ---
Date of service: 10/05/24 Time of Service: 13:05 Care Management Safety Plan Status Status: Voluntary Reason for Wait Reason for Wait: Inpatient Admission Safety Plan Safety Plan: VOLUNTARY FOR INPATIENT PSYCHIATRIC STABILIZATION.? Patient is appropriate in all interactions since arriving at [facility]; Pt has demonstrated appropriate coping and communication skills, has articulated his needs and concerns and is fully engaged during staff interactions. Safety plan has been established with patient, and care team, to adhere to patient goals, identify restrictions based on behavioral status, address nutrition, and determine allowed personal belongings, tools for hygiene and personal care. Determine level of activity including ambulation, level of supervision, visitors, and determine privileges based on behaviors and level of engagement by pt. VOLUNTARY SAFETY PLAN: 1. Will remain on suicide precautions, in paper clothes 2. Will remain in Zone B under direct supervision of one-on-one staff at all times provided by [employer]; GARY, HAM FACER director of tax services. 3. May have paper cups, plates, finger foods as well as a cardboard spoon with which to eat meals. 4. Follow [facility] Management of the Admitted Behavioral Health Patient policy. 5. Shower available in Zone B without restriction. 6. Personal belongings-soft items permitted at RN discretion. 7. Visitors-none at this time. 8. Activities: soft cart items approved per RN discretion. 9.? Bathroom available in Zone B without restriction. 10. Phone: limited to [facility] cordless phone at RN discretion. Due to VOLUNTARY status, if patient wishes to leave [facility], staff will contact [facility] Crisis Screener ([phone]) and Administrative Assistant ([phone]) as soon as possible. In the event of elopement, notify [facility] Police ([phone]).
[2024-10-05 15:22] VITALS: BP 153/92; PULSE 69; RESP 16; TEMP 36.3; O2SAT 97
--- NOTE | 2024-10-05 16:47 | ED.PROG_ITS ---
Date of service: 10/05/24 Time of Service: 16:48 Medical Decision Making Care assumed from off going provider. Patient is currently pending voluntary inpatient psychiatric placement for suicidal and homicidal ideation. Patient does report history of alcohol abuse and is on Librium at this time. Interest expressed by [facility] for placement, but they are requesting a urine drug screen. This has been ordered, but the patient has been sleeping and not yet provided a sample. He has been stable during my shift. Quality:SDOH Health Related Social Needs: Health related social needs problems related to housin g/economic circumstances (Z59.89) Discharge Plan Discharge Details Chief Complaint: PsychEval Clinical Impression: Suicidal ideation Primary Care Provider: Yakelin Berkowitz ED Provider: Valentino Valverde Home Meds and New Rx's Prescriptions: No Action gabapentin 300 mg Tablet 100 mg PO TID bupropion HCl 150 mg tablet extended release 24 hr 150 mg PO QDAY methadone 10 mg/mL concentrate 110 mg PO DAILY
[2024-10-05 20:00] VITALS: BP 123/72; PULSE 61; RESP 16; TEMP 36.1; O2SAT 95
[2024-10-06 00:14] LABS: *AMPHETAMINES SCREEN URINE Negative (Negative); *BARBITURATES SCREEN URINE Negative (Negative); *BENZODIAZEPINES SCREEN URINE Positive (Negative); Cannabinoids THC Positive (Negative); Cocaine Screen,Urine Positive (Negative); METHADONE URINE SCREEN Positive (Negative); OPIATES URINE SCREEN Negative (Negative); Tricyclic Antidepressants Negative (Negative)
--- NOTE | 2024-10-06 06:22 | ED.PROG_ITS ---
Date of service: 10/05/24 Time of Service: 23:00 Medical Decision Making This patient was signed out to me. Please see previous notes for H&P and initial eval. In brief, 44yo M with SI, voluntary. Medically cleared, home meds ordered, [facility] reccs inpatient. Tentatively accepted to [facility] but pending UDS for final acceptance. UDS performed. Will be signed out to oncoming physician, plan as above. Quality:SDOH Health Related Social Needs: Health related social needs problems related to housin g/economic circumstances (Z59.89) Discharge Plan Discharge Details Chief Complaint: PsychEval Clinical Impression: Suicidal ideation Primary Care Provider: Yakelin Berkowitz ED Provider: Ifrah Salgado Home Meds and New Rx's Prescriptions: No Action gabapentin 300 mg Tablet 100 mg PO TID bupropion HCl 150 mg tablet extended release 24 hr 150 mg PO QDAY methadone 10 mg/mL concentrate 110 mg PO DAILY
--- NOTE | 2024-10-06 07:31 | ED.PROG_ITS ---
Date of service: 10/06/24 Time of Service: 07:31 Medical Decision Making I received signout on this 44-year-old patient in the emergency department voluntarily in the setting of suicidal and homicidal ideation. Patient is on chlordiazepoxide. All medications have been ordered. No active signs of withdrawal. Will update documentation as clinically warranted and signed patient out to the oncoming overnight provider. 4 PM No active behavioral issues last shift. Patient has not been scoring on his CIWA protocol. Will sign patient out to the oncoming evening provider, Dr. Vavlerde. Quality:SDOH Health Related Social Needs: Health related social needs problems related to housin g/economic circumstances (Z59.89) Discharge Plan Discharge Details Chief Complaint: PsychEval Clinical Impression: Suicidal ideation Primary Care Provider: Yakelin Berkowitz ED Provider: John Ritchie Home Meds and New Rx's Prescriptions: No Action gabapentin 300 mg Tablet 100 mg PO TID bupropion HCl 150 mg tablet extended release 24 hr 150 mg PO QDAY methadone 10 mg/mL concentrate 150 mg PO DAILY Patient Comments: 150 mg daily, dose verified w/JOVANI 10/06/24
[2024-10-06 08:23] VITALS: BP 119/69; PULSE 57; RESP 19; TEMP 36.2; O2SAT 97
[2024-10-06] MEDS: chlordiazePOXIDE 25 MG CAP PO ×3 (08:31→20:29)
[2024-10-06] MEDS: Gabapentin 100 MG CAP PO ×3 (08:31→20:29)
[2024-10-06] MEDS: buPROPion-XL 150 MG TABCR PO (08:31)
[2024-10-06] MEDS: Methadone Liquid 10 MG/ML 150 MG PO (08:31)
--- NOTE | 2024-10-06 13:39 | PDOC.CMSAFE ---
Date of service: 10/06/24 Time of Service: 13:40 Care Management Safety Plan Status Status: Voluntary Reason for Wait Reason for Wait: Inpatient Admission Safety Plan Safety Plan: VOLUNTARY FOR INPATIENT PSYCHIATRIC STABILIZATION.? Patient is appropriate in all interactions since arriving at [facility]; Pt has demonstrated appropriate coping and communication skills, has articulated his needs and concerns and is fully engaged during staff interactions. Safety plan has been established with patient, and care team, to adhere to patient goals, identify restrictions based on behavioral status, address nutrition, and determine allowed personal belongings, tools for hygiene and personal care. Determine level of activity including ambulation, level of supervision, visitors, and determine privileges based on behaviors and level of engagement by pt. VOLUNTARY SAFETY PLAN: 1. Will remain on suicide precautions, in paper clothes 2. Will remain in Zone B under direct supervision of one-on-one staff at all times provided by [employer]; GARY, INSPECTOR [employer] CAN medical review coordinator. 3. May have paper cups, plates, finger foods as well as a cardboard spoon with which to eat meals. 4. Follow [facility] Management of the Admitted Behavioral Health Patient policy. 5. Shower available in Zone B without restriction. 6. Personal belongings-soft items permitted at RN discretion. 7. Visitors-none at this time. 8. Activities: soft cart items approved per RN discretion. 9.? Bathroom available in Zone B without restriction. 10. Phone: limited to [facility] cordless phone at RN discretion. Due to VOLUNTARY status, if patient wishes to leave [facility], staff will contact [facility] Crisis Screener ([phone]) and Environmental Services Assistant ([phone]) as soon as possible. In the event of elopement, notify [facility] Police ([phone]).
--- NOTE | 2024-10-06 13:41 | PDOC.CMPRO ---
Date of service: 10/06/24 Time of Service: 13:41 Care Management Progress Note Progress Note Text Progress Note Text: CM huddled with staff regarding Cahpo's plan of care. Per RN, Chapo has been pleasant, polite, and cooperative with staff. He has been eating/drinking well, and has mostly been in his room, often sleeping/lying down. Per report, Chapo is known to [facility], and is also known to travel throughout [place]. Per [facility], Chapo stated that he is not feeling SI currently, but continues to have HI, and if he is discharged, he will feel suicidal, at that time, prior to treatment. Per [facility], he has not stated that his HI is directed at a particular person; per staff, he reported that he feels HI toward people who have made his life difficult. He continues to meet criteria for voluntary inpatient, psychiatric treatment. Referrals were sent; he has been declined by [facility], and all other hospitals are reviewing at this time. Safety plan in place; CM will continue to follow. Social Determinants of Health Screening Will the Patient Participate in the Screening?: Declined to provide Health Related Social Needs Health related social needs: problems related to housing/economic circumstances (Z59.89)
--- NOTE | 2024-10-06 18:07 | ED.PROG_ITS ---
Date of service: 10/06/24 Time of Service: 18:08 Medical Decision Making Care assumed from outgoing provider, patient is currently pending voluntary inpatient psychiatric placement for suicidal ideation. Had a slightly increased CIWA score this evening at 11 and was having some agitation and difficulty getting rest he did take his nighttime Librium dose, so I given 10 mg of oral Valium to help with the symptoms and to get him some sleep. Quality:SDOH Health Related Social Needs: Health related social needs problems related to housin g/economic circumstances (Z59.89) Discharge Plan Discharge Details Chief Complaint: PsychEval Clinical Impression: Suicidal ideation Primary Care Provider: Yakelin Berkowitz ED Provider: Valentino Valverde Home Meds and New Rx's Prescriptions: No Action gabapentin 300 mg Tablet 100 mg PO TID bupropion HCl 150 mg tablet extended release 24 hr 150 mg PO QDAY methadone 10 mg/mL concentrate 150 mg PO DAILY Patient Comments: 150 mg daily, dose verified leena/JOVANI 10/06/24
[2024-10-06 21:45] VITALS: BP 153/95; PULSE 73; RESP 16; TEMP 36.1; O2SAT 96
[2024-10-06] MEDS: diazePAM 5 MG TAB 10 MG PO (21:50)
[2024-10-07 01:59] VITALS: BP 134/86; PULSE 74; RESP 17; TEMP 36.4; O2SAT 96
[2024-10-07] MEDS: diazePAM 5 MG TAB 10 MG PO (02:06)
[2024-10-07 05:49] VITALS: BP 138/87; PULSE 90; RESP 17; TEMP 36.4; O2SAT 99
--- NOTE | 2024-10-07 06:40 | W.EDPROG ---
Date of service: 10/07/24 Time of Service: 06:40 Medical Decision Making Patient remains voluntary for dual diagnosis admission for alcohol dependence, depression with SI. He is on Librium [id number]. He required Valium last evening prior to signout. Required another dose of Valium track manager for CIWA score of 8. No other issues overnight. Continue to monitor CIWA, maintain 3 times daily Librium dosing. Quality:SDOH Health Related Social Needs: Health related social needs problems related to housing/economic circumstances (Z59.89) Discharge Plan Discharge Details Chief Complaint: PsychEval Clinical Impression: Suicidal ideation Primary Care Provider: Yakelin Berkowitz ED Provider: [facility] Meds and New Rx's Prescriptions: No Action gabapentin 300 mg Tablet 100 mg PO TID bupropion HCl 150 mg tablet extended release 24 hr 150 mg PO QDAY methadone 10 mg/mL concentrate 150 mg PO DAILY Patient Comments: 150 mg daily, dose verified leena/JOVANI 10/06/24
[2024-10-07] MEDS: Gabapentin 100 MG CAP PO ×3 (07:58→20:51)
[2024-10-07] MEDS: Methadone Liquid 10 MG/ML 150 MG PO (07:58)
[2024-10-07] MEDS: chlordiazePOXIDE 25 MG CAP PO ×3 (07:58→20:50)
[2024-10-07] MEDS: buPROPion-XL 150 MG TABCR PO (07:58)
--- NOTE | 2024-10-07 08:05 | ED.PROG_ITS ---
Date of service: 10/07/24 Time of Service: 08:05 Medical Decision Making In brief, this is a 44-year-old male patient boarding in our emergency department voluntarily for suicidal ideation and alcohol withdrawal. He is on a Librium taper, has been receiving his home methadone dose, and feels that helps withdrawal symptoms are improving, other than some mild sweats. Prior to my taking over their care, the patient was medically cleared, and has been resting comfortably. They have met with the adoption social worker and we are awaiting final dispo. They have not required any additional medications for restraint or sedation. He did have 1 episode of an elevated CIWA for which he received 5 mg of Valium. The patient was signed out to the oncoming provider prior to final disposition. Remained hemodynamically appropriate, calm, cooperative, and comfortable while under my care. Jessi Aly MD Medical Records Medical records reviewed: Yes I reviewed the patient's medical records. Lab Data Lab results reviewed: Yes I reviewed the patient's lab results. Quality:SDOH Health Related Social Needs: Health related social needs problems related to housin g/economic circumstances (Z59.89) Discharge Plan Discharge Details Chief Complaint: PsychEval Clinical Impression: Suicidal ideation Primary Care Provider: Yakelin Berkowitz ED Provider: Jessi Aly Home Meds and New Rx's Prescriptions: No Action gabapentin 300 mg Tablet 100 mg PO TID bupropion HCl 150 mg tablet extended release 24 hr 150 mg PO QDAY methadone 10 mg/mL concentrate 150 mg PO DAILY Patient Comments: 150 mg daily, dose verified Donya 10/06/24
[2024-10-07 10:05] VITALS: BP 138/66; PULSE 69; RESP 20; TEMP 36.2; O2SAT 98
[2024-10-07] MEDS: diazePAM 5 MG TAB PO (10:27)
--- NOTE | 2024-10-07 12:59 | NUR.NOTE ---
Nursing Note: Pt has been lying in bed resting comfortably all shift. Pt observed to be calm, not showing signs of anxiety. Pt not wandering, no increased aggregation, no pressured speech. However, he reported being very agitated and anxious during his CIWA assessment, but there have been no signs of this occurrence noted. He reported being very sweaty, especially on the back of his neck. There were no signs of excessive sweating noted, no shaking observed or felt by this nurse during the assessment. When nurse asked each question per flowsheet pt responded well what is the highest that I can score? I am at the highest that I can score.
--- NOTE | 2024-10-07 13:48 | PDOC.CMSAFE ---
Date of service: 10/07/24 Time of Service: 13:48 Care Management Safety Plan Status Status: Voluntary Reason for Wait Reason for Wait: Inpatient Admission Safety Plan Safety Plan: VOLUNTARY FOR INPATIENT PSYCHIATRIC STABILIZATION.? Patient is appropriate in all interactions since arriving at [facility]; Pt has demonstrated appropriate coping and communication skills, has articulated his needs and concerns and is fully engaged during staff interactions. Safety plan has been established with patient, and care team, to adhere to patient goals, identify restrictions based on behavioral status, address nutrition, and determine allowed personal belongings, tools for hygiene and personal care. Determine level of activity including ambulation, level of supervision, visitors, and determine privileges based on behaviors and level of engagement by pt. VOLUNTARY SAFETY PLAN: 1. Will remain on suicide precautions, in paper clothes 2. Will remain in Zone B under direct supervision of one-on-one staff at all times provided by [employer]; GARY, METER SHOP SUPERINTENDENT power sewing machine operator. 3. May have paper cups, plates, finger foods as well as a cardboard spoon with which to eat meals. 4. Follow [facility] Management of the Admitted Behavioral Health Patient policy. 5. Shower available in Zone B without restriction. 6. Personal belongings-soft items permitted at RN discretion. 7. Visitors-none at this time. 8. Activities: soft cart items approved per RN discretion. 9.? Bathroom available in Zone B without restriction. 10. Phone: limited to [facility] cordless phone at RN discretion. Due to VOLUNTARY status, if patient wishes to leave [facility], staff will contact [facility] Crisis Screener ([phone]) and Yarn Skeins Examiner ([phone]) as soon as possible. In the event of elopement, notify [facility] Police ([phone]).
--- NOTE | 2024-10-07 13:49 | PDOC.CMPRO ---
Date of service: 10/07/24 Time of Service: 13:49 Care Management Progress Note Progress Note Text Progress Note Text: MUSHTAQ huddled with staff regarding Chapo's plan of care. Per RN, he is scoring on CIWA today, after scoring 0 all day yesterday; concern noted for med seeking behavior, as he is reporting that he is highly anxious and agitated, although his affect appears calm and his speech is not pressured. Per RN, this will continue to be assessed. Per staff, he has been ordering an excessive amount of food outside of scheduled meals, including overnight. This was discussed with the team, who agreed that he should have the opportunity to order one snack between meals, to remain consistent throughout shifts. MUSHTAQ met with hCapo to discuss his concerns about a court hearing he has scheduled for today. He attempted to contact his corporate development officer and left a voicemail; he then called the court, who requested that CM send an email with a request to conduct the hearing by zoom due to him being in a hospital; CM sent the email as requested. Per [facility], he reports SI/HI; his SI is 7/10 with a plan to overdose. He remains voluntary, seeking inpatient psychiatric treatment. Referrals are pending; he was declined by [facility], other facilities still reviewing. Safety plan in place. CM will continue to follow. Social Determinants of Health Screening Will the Patient Participate in the Screening?: Declined to provide
[2024-10-07 14:20] VITALS: BP 132/86; PULSE 86; RESP 16; TEMP 36.1; O2SAT 99
--- NOTE | 2024-10-07 15:31 | MHPN_ITS ---
Date of service: 10/07/24 Time of Service: 12:45 Mental Health Emergency Note Release [facility] release signed:: Yes Reason for Visit Client reports 03/19 with intention of overdosing. In the last 2 weeks has the pt presented for ES prior to today?: Yes, presented at Client Information Client is: Adult Outpatient Well Housed: No,status: Homeless Non Suicidal Self Injury Current: Yes, Client states that he will overdoes on drugs. History: yes, Client is currently experiencing homelessness and in Zone B with no access to means. Safety Risk/Harm to Self or Others Current Ideation to Harm Self or Others: Yes to self. Intent: yes, has intent. Plan: yes,has a plan. Risk: Does risk to harm exist?: No Risk: N/A Duty to warn indicated: No Impression Client is voluntary for inpatient care. Resources Reosurces reviewed and given:: [facility] Plan/Disposition Recommended Disposition: Med management. Plan: Cleint is currently waiting in ED for inpatient care placement. Person reported agreement to plan: Yes Facilities contacted if Applicable [facility], Other [facility] Not accepted, Other [facility] Not accepted, [facility], Other Reports/communication Outcome discussed with: ED/Personnel
--- NOTE | 2024-10-07 17:11 | ED.PROG_ITS ---
Date of service: 10/07/24 Time of Service: 17:11 Medical Decision Making Patient signed out to me seeking voluntary placement for thoughts of self-harm, no new acute issues. Will continue to monitor until safe disposition found Quality:SDOH Health Related Social Needs: Health related social needs problems related to housin g/economic circumstances (Z59.89) Discharge Plan Discharge Details Chief Complaint: PsychEval Clinical Impression: Suicidal ideation Primary Care Provider: Yakelin Berkowitz ED Provider: Sarmad Woodruff [place] Meds and New Rx's Prescriptions: No Action gabapentin 300 mg Tablet 100 mg PO TID bupropion HCl 150 mg tablet extended release 24 hr 150 mg PO QDAY methadone 10 mg/mL concentrate 150 mg PO DAILY Patient Comments: 150 mg daily, dose verified w/JOVANI 10/06/24
--- NOTE | 2024-10-08 06:49 | W.EDPROG ---
Date of service: 10/08/24 Time of Service: 06:49 Medical Decision Making Patient remains in ED pending inpatient psychiatric admission for depression and SI. Remains on oral Librium, CIWA scoring has been discontinued. No signs of significant alcohol withdrawal overnight. Case management and [facility] continue working on placement. Quality:[facility] Health Related Social Needs: Health related social needs problems related to housing/economic circumstances (Z59.89) Discharge Plan Discharge Details Chief Complaint: PsychEval Clinical Impression: Suicidal ideation Primary Care Provider: Yakelin Berkowitz ED Provider: [facility] [place] Meds and New Rx's Prescriptions: No Action gabapentin 300 mg Tablet 100 mg PO TID bupropion HCl 150 mg tablet extended release 24 hr 150 mg PO QDAY methadone 10 mg/mL concentrate 150 mg PO DAILY Patient Comments: 150 mg daily, dose verified w/JOVANI 10/06/24
--- NOTE | 2024-10-08 07:12 | ED.PROG_ITS ---
Date of service: 10/08/24 Time of Service: 07:12 Medical Decision Making In brief, this is a 44-year-old male patient boarding in our emergency department for suicidal ideation and depression as well as alcohol withdrawal. The patient is off of CIWA scoring and on scheduled Librium with no additional need for breakthrough medications. Prior to my taking over their care, the patient was medically cleared, and has been resting comfortably. They have met with the social services technician and we are awaiting final dispo. They have not required any additional medications for restraint or sedation. The patient was signed out to the oncoming provider prior to final disposition. Remained hemodynamically appropriate, calm, cooperative, and comfortable while under my care. Jessi Aly MD Medical Records Medical records reviewed: Yes I reviewed the patient's medical records. Lab Data Lab results reviewed: Yes I reviewed the patient's lab results. Quality:SDOH Health Related Social Needs: Health related social needs problems related to housin g/economic circumstances (Z59.89) Discharge Plan Discharge Details Chief Complaint: PsychEval Clinical Impression: Suicidal ideation Primary Care Provider: Yakelin Berkowitz ED Provider: Jessi Aly Home Meds and New Rx's Prescriptions: No Action gabapentin 300 mg Tablet 100 mg PO TID bupropion HCl 150 mg tablet extended release 24 hr 150 mg PO QDAY methadone 10 mg/mL concentrate 150 mg PO DAILY Patient Comments: 150 mg daily, dose verified leena/JOVANI 10/06/24
[2024-10-08 08:15] VITALS: BP 149/81; PULSE 83; RESP 18; TEMP 36.6; O2SAT 94
[2024-10-08] MEDS: Gabapentin 100 MG CAP PO ×3 (08:26→19:33)
[2024-10-08] MEDS: chlordiazePOXIDE 25 MG CAP PO ×3 (08:26→19:33)
[2024-10-08] MEDS: Methadone Liquid 10 MG/ML 150 MG PO (08:26)
[2024-10-08] MEDS: buPROPion-XL 150 MG TABCR PO (08:26)
[2024-10-08 15:05] VITALS: BP 131/77; PULSE 80; RESP 16; TEMP 36.6; O2SAT 96
--- NOTE | 2024-10-08 16:02 | PDOC.CMSAFE ---
Date of service: 10/08/24 Time of Service: 16:02 Care Management Safety Plan Status Status: Voluntary Reason for Wait Reason for Wait: Inpatient Admission Safety Plan Safety Plan: VOLUNTARY FOR INPATIENT PSYCHIATRIC STABILIZATION.? Patient is appropriate in all interactions since arriving at [facility]; Pt has demonstrated appropriate coping and communication skills, has articulated his needs and concerns and is fully engaged during staff interactions. Safety plan has been established with patient, and care team, to adhere to patient goals, identify restrictions based on behavioral status, address nutrition, and determine allowed personal belongings, tools for hygiene and personal care. Determine level of activity including ambulation, level of supervision, visitors, and determine privileges based on behaviors and level of engagement by pt. VOLUNTARY SAFETY PLAN: 1. Will remain on suicide precautions, in paper clothes 2. Will remain in Zone B under direct supervision of one-on-one staff at all times provided by [employer]; GARY, FORMING OPERATOR supervisor acoustical tile carpenters. 3. May have paper cups, plates, finger foods as well as a cardboard spoon with which to eat meals. 4. Follow [facility] Management of the Admitted Behavioral Health Patient policy. 5. Shower available in Zone B without restriction. 6. Personal belongings-soft items permitted at RN discretion. 7. Visitors-none at this time. 8. Activities: soft cart items approved per RN discretion. 9.? Bathroom available in Zone B without restriction. 10. Phone: limited to [facility] cordless phone at RN discretion. Due to VOLUNTARY status, if patient wishes to leave [facility], staff will contact [facility] Crisis Screener ([phone]) and Piano Case [employer] Bench Assembler ([phone]) as soon as possible. In the event of elopement, notify [facility] Police ([phone]).
--- NOTE | 2024-10-08 16:03 | CMPROGNOTE_ITS ---
Date of service: 10/08/24 Time of Service: 16:03 Care Management Progress Note Progress Note Text Progress Note Text: CM huddled with staff regarding Chapo's plan of care. Per staff, he continues to order an excessive amount of food outside of sched uled meals, including overnight. This was discussed with the team, who agreed that he should have the opportunity to order one snack between meals, to remain consistent throughout shifts. He is able to choose what he would like for each meal. Per [facility], he is reporting his SI at a 6/10 today, with a plan to overdose. He continues to meet criteria for inpatient psychiatric care. Per RN, he has been asking to have his medications increased. He has been advised that his medications will not be changed while at [facility]; medication management will take place at the inpatient psychiatric facility. Chapo is voluntary, seeking inpatient psychiatric treatment. Safety plan in place; CM will continue to follow. Social Determinants of Health Screening Will the Patient Participate in the Screening?: Declined to provide Health Related Social Needs Health related social needs: problems related to housing/economic circumstances (Z59.89)
--- NOTE | 2024-10-08 22:47 | ED.PROG_ITS ---
Date of service: 10/08/24 Time of Service: 17:00 Medical Decision Making This patient was signed out to me. Please see previous notes for H&P and initial eval. In brief, 44yo M with SI, voluntary, medically cleared, pending placements. No acute events on my time. Will be signed out to oncoming physician, plan remains as above. Quality:SDOH Health Related Social Needs: Health related social needs problems related to housin g/economic circumstances (Z59.89) Discharge Plan Discharge Details Chief Complaint: PsychEval Clinical Impression: Suicidal ideation Primary Care Provider: Yakelin Berkowitz ED Provider: Ifrah Salgado Home Meds and New Rx's Prescriptions: No Action gabapentin 300 mg Tablet 100 mg PO TID bupropion HCl 150 mg tablet extended release 24 hr 150 mg PO QDAY methadone 10 mg/mL concentrate 150 mg PO DAILY Patient Comments: 150 mg daily, dose verified leena/JOVANI 10/06/24
--- NOTE | 2024-10-09 07:57 | W.EDPROG ---
Date of service: 10/09/24 Time of Service: 08:06 Medical Decision Making Outgoing provider. Patient is currently pending inpatient voluntary psychiatric placement for SI. Evaluated by [facility]. No changes in plan. still pending placement. Quality:SDOH Health Related Social Needs: Health related social needs problems related to housing/economic circumstances (Z59.89) Discharge Plan Discharge Details Chief Complaint: PsychEval Clinical Impression: Suicidal ideation Primary Care Provider: Yakelin Berkowitz ED Provider: Valentino Valverde Home Meds and New Rx's Prescriptions: No Action gabapentin 300 mg Tablet 100 mg PO TID bupropion HCl 150 mg tablet extended release 24 hr 150 mg PO QDAY methadone 10 mg/mL concentrate 150 mg PO DAILY Patient Comments: 150 mg daily, dose verified leena/JOVANI 10/06/24
[2024-10-09] MEDS: Methadone Liquid 10 MG/ML 150 MG PO (08:05)
[2024-10-09] MEDS: buPROPion-XL 150 MG TABCR PO (08:05)
[2024-10-09] MEDS: chlordiazePOXIDE 25 MG CAP PO (08:05)
[2024-10-09] MEDS: Gabapentin 100 MG CAP PO (08:05)
--- NOTE | 2024-10-09 08:33 | CMSP_ITS ---
Date of service: 10/09/24 Time of Service: 08:34 Care Management Safety Plan Status Status: Voluntary Reason for Wait Reason for Wait: Inpatient Admission Safety Plan Safety Plan: VOLUNTARY FOR INPATIENT PSYCHIATRIC STABILIZATION.? Patient is appropriate in all interactions since arriving at [facility]; Pt has demonstrated appropriate coping and communication skills, has articulated his needs and concerns and is fully engaged during staff interactions. Safety plan has been established with patient, and care team, to adhere to patient goals, identify restrictions based on behavioral status, address nutrition, and determine allowed personal belongings, tools for hygiene and personal care. Determine level of activity including ambulation, level of s upervision, visitors, and determine privileges based on behaviors and level of engagement by pt. VOLUNTARY SAFETY PLAN: 1. Will remain on suicide precautions, in paper clothes 2. Will remain in Zone B under direct supervision of one-on-one staff at all times provided by [employer]; GARY, ENFORCEMENT MANAGER thoroughbred horse farm manager. 3. May have paper cups, plates, finger foods as well as a cardboard spoon with which to eat meals. 4. Follow [facility] Management of the Admitted Behavioral Health Patient policy. 5. Shower available in Zone B without restriction. 6. Personal belongings-soft items permitted at RN discretion. 7. Visitors-none at this time. 8. Activities: soft cart items approved per RN discretion. 9.? Bathroom available in Zone B without restriction. 10. Phone: limited to [facility] cordless phone at RN discretion. Due to VOLUNTARY status, if patient wishes to leave [facility], staff will contact [facility] Crisis Screener ([phone]) and [employer] ([phone]) as soon as possible. In the event of elopement, notify [facility] Police ([phone]).
--- NOTE | 2024-10-09 12:42 | W.EDPROG ---
Date of service: 10/09/24 Time of Service: 12:43 Medical Decision Making At this time the patient would like to leave the hospital. He does not want to wait for [facility] to come and reevaluate and provide a safety plan or other resources. He is requesting his prescriptions be sent to the pharmacy. I have that. I provided a [id number] evaluation of the patient. He denies any SI or HI seems to be calm and coherent. Advised risks of leaving AGAINST MEDICAL ADVICE for patient has the capacity to make that decision. Quality:SDOH Health Related Social Needs: Health related social needs problems related to housing/economic circumstances (Z59.89) Discharge Plan Disposition Patient Disposition: Against Medical Advice Condition: Stable Discharge Details Clinical Impression: Suicidal ideation Primary Care Provider: Yakelin Berkowitz ED Provider: Valentino Valverde Home Meds and New Rx's Prescriptions: New gabapentin 100 mg capsule 100 mg PO TID 30 Days Qty: 90 0RF Continued gabapentin 300 mg Tablet 100 mg PO TID bupropion HCl 150 mg tablet extended release 24 hr 150 mg PO QDAY Qty: 30 0RF No Action methadone 10 mg/mL concentrate 150 mg PO DAILY Patient Comments: 150 mg daily, dose verified w/JOVANI 10/06/24 Discharge Instructions Additional Instructions: Your prescriptions were sent to the pharmacy please pick them up so you can continue to to take these medications daily Please follow-up with your mental health team and other community resources as needed
--- NOTE | 2024-10-10 09:52 | MHPN_ITS ---
Date of service: 10/09/24 Time of Service: 11:00 PHQ-9 Over the last 2 weeks, how often have you been bothered by any of the following problems? 1. Little interest or pleasure in doing things: several days 2. Feeling down, depressed, or hopeless: several days 3. Trouble falling or staying asleep, or sleeping too much: several days 4. Feeling tired or having little energy: several days 5. Poor appetite or overeating: more than half the days 6. Feeling bad about yourself - or that you are a failure or have let yourself and your family down: several days 7. Trouble concentrating on things, such as reading the newspaper or watching television: several days 8. Moving or speaking so slowly that other people could have noticed? - Or the opposite - being so fidgety or restless that you have been moving around a lot more than usual: not at all 9. Thoughts that you would be better off or of hurting yourself in some way: more than half the days Total score: 10 Source: Developed by Drs. Pj Urias, Jie Velarde, David Mckeon and colleagues, with an educational jaqui from [employer]. Suicide Severity Rate CSSRS Have you wished you were or wished you could go to sleep and not wake up?: Yes Have you actually had any thoughts of killing yourself?: Yes CSSRS2 Have you been thinking about how you might do this?: Yes Have you had these thoughts and had some intention of acting on them?: No Have you started to work out or worked out the details of how to kill yourself? Do you intend to carry out this plan?: No CSSRS3 Have you ever done anything, started to do anything or prepared to do anything to end your life?: No Screening Score Total Score: 4 Screening: Positive Mental Health Emergency Note Release [facility] release signed:: Yes Reason for Visit Suicidal ideation, homelessness In the last 2 weeks has the pt presented for ES prior to today?: No Client Information Client is: Adult Outpatient Well Housed: No,status: Homeless Unstable housing Non Suicidal Self Injury Current: No History: yes, daily Safety Risk/Harm to Self or Others Current Ideation to Harm Self or Others: Yes to self. Intent: no, has no intent. Plan: no.does not have a plan. History of suicide attempt: No history of suicide attempt reported Risk: Does risk to harm exist?: yes. Risk: Low Risk Duty to warn indicated: No Asssessment/Mental Status Appearance: Other Attitude: Guarded Behavior: Agitated Speech: Normal Affect: Cogruent with mood Mood: Anxious and Irritable Thought process: Goal directed Hallucinations: No Delusions: No Attention: Unremarkable Perception: Not impaired Orientation: Fully orientated Memory: Intact Insight: Poor Judgement: Poor Neurovegetative Symptoms Sleep: Decrease Appetitie: Disordered Interests: Decrease Energy: Decrease Libido: Not applicable Substance Use: Other Drug Issues: Other Do you use nicotine?: Yes Have you used substances in the last 7 days?: yes, overdose Additional Issues: Assaultive/Threatening Behavior: No Medical Concerns: No Client engaged in active self harm w/weapon: No Threatening to run away: No Child reported abuse/neglect: No Voluntarily presenting for services: Yes Domestic violence is a concern: No Extreme Psychosis or extreme behavior is present: No Impression Patient is awaiting placement but was asking the temperature outside and talking about going to see his mother in [facility]. This chief underwriter will not be surprised if he leaves the hospital on his own accord soon. Resources Reosurces reviewed and given:: [id number] Plan/Disposition Recommended Disposition: Hospitalization facilities contacted. Plan: Awaiting an inpatient bed Person reported agreement to plan: Yes Reports/communication Outcome discussed with: ED/Personnel
== END 2024-10-09 12:47 | disposition left against medical advice (07) ==
PROVIDERS: Student in an Organized Health Care Education/Training Program; Emergency Provider Emergency Medicine; PCP Nurse Practitioner Family
DX: R45.851 Suicidal ideations (principal); F32.A Depression, unspecified; F17.210 Nicotine dependence, cigarettes, uncomplicated; Z59.00 Homelessness unspecified; Z53.29 Procedure and treatment not carried out because of patient's decision for other reasons
CPT/HCPCS: 00123; 80053; 80307; 96127; 99285; 80320; 80329; 85025

== ENCOUNTER 2025-05-21 05:34 | Emergency (ER) | payer MEDICAID, SELFPAY ==
[2025-05-21 05:36] VITALS: BP 119/78; PULSE 73; RESP 18; TEMP 37.1; O2SAT 96
--- NOTE | 2025-05-21 06:16 | W.ED.GENAD ---
Discharge Plan Discharge Details Chief Complaint: PsychEval Clinical Impression: Hallucinations, Suicide ideation Primary Care Provider: Yakelin Berkowitz ED Provider: Krishna Law Home Meds and New Rx's Prescriptions: No Action gabapentin 300 mg Tablet 100 mg PO TID bupropion HCl 150 mg tablet extended release 24 hr 150 mg PO QDAY Qty: 30 0RF methadone 10 mg/mL concentrate 150 mg PO DAILY Patient Comments: 150 mg daily, dose verified w/JOVANI 10/06/24 HPI General Date/Time Provider Initiated Documentation: 05/21/25 05:47. HPI Narrative: 45-year-old male with a past medical history of alcohol use, methadone use, drug use, depression, presents today for evaluation of hallucinations and suicidal ideations. Patient states that he recently just got [facility] of penitent[facility], he has not taken his meds for a week or so. He states that he has been doing some partying recently and may have taken some LSD a week or so ago. He states that he has not been sleeping well, he has been starting to hear voices and see things that he knows are not there. He states that he is beginning to feel suicidal, and he has a plan which would be to end his life by taking fentanyl. He denies any chest pain or shortness of breath. No other complaints at this time. Related Data Home Medications ?Medication ?Instructions ?Recorded ?Confirmed gabapentin 300 mg tablet 100 mg PO TID 05/18/22 05/21/25 methadone 10 mg/mL oral concentrate 150 mg PO DAILY 04/04/24 05/21/25 bupropion HCl 150 mg 24 hr tablet, 150 mg PO QDAY #30 tabs 10/09/24 05/21/25 extended release Previous Rx's ?Medication ?Instructions ?Recorded bupropion HCl 150 mg 24 hr tablet, 150 mg PO QDAY #30 tabs 10/09/24 extended release Allergies Allergy/AdvReac Type Severity Reaction Status Date / Time atomoxetine HCl (From Allergy Mild Unknown Verified 05/21/25 05:44 Strattera) ketorolac tromethamine (From Allergy Unknown Anaphylaxsi Verified 05/21/25 05:44 Toradol) s General Stated Complaint: PsychEval CASIE: 2 Exam Narrative Exam Narrative: 1.Const: Well-nourished, Well-developed, appearing stated age 2.Eyes: PERRL, no conjunctival injection, and symmetrical lids. 3.ENT: Atraumatic external nose and ears. Moist MM. Neck: Symmetric, trachea midline, No thyromegaly. 4.CVS: +S1/S2, Peripheral pulses 2+ and equal in all extremities. Brisk capillary refill in all extremities. 5.RESP: Unlabored respiratory effort. Clear to auscultation bilaterally. No wheezes rales or rhonchi 6.GI: Soft, Nontender/Nondistended, No hepatosplenomegaly. No guarding or rebound. 7.MSK: Normocephalic/Atraumatic, Extremities w/o deformity or ttp No cyanosis or clubbing, Normal movement of all extremities 8.Skin: Warm, Dry. No rashes or lesions. 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 Sensation grossly intact, no focal neurologic deficits. 10.Psych: (AAO) x3. Appropriate mood and affect Course Vital Signs Vital signs: Vital Signs Temperature 37.1 C 05/21/25 05:36 Pulse 73 05/21/25 05:36 Respiratory Rate 18 05/21/25 05:36 Blood Pressure 119/78 05/21/25 05:36 Pulse Oximetry 96 05/21/25 05:36 Temperature 37.1 C 05/21/25 05:36 Temperature Source Oral 05/21/25 05:36 Pulse 73 05/21/25 05:36 Respiratory Rate 18 05/21/25 05:36 Blood Pressure 119/78 05/21/25 05:36 Pulse Oximetry 96 05/21/25 05:36 Pain Level 6 05/21/25 05:36 Medical Decision Making 45-year-old male with a past medical history of alcohol use, methadone use, drug use, depression, presents today for evaluation of hallucinations and suicidal ideations. Patient states that he recently just got out of penitentiary, he has not taken his meds for a week or so. He states that he has been doing some partying recently and may have taken some LSD a week or so ago. He states that he has not been sleeping well, he has been starting to hear voices and see things that he knows are not there. He states that he is beginning to feel suicidal, and he has a plan which would be to end his life by taking fentanyl. He denies any chest pain or shortness of breath. No other complaints at this time. Exam demonstrates stable appearing male. No acute distress. With his suicidal ideations, drug use, and suicidal plan I do feel that he would benefit from potential inpatient admission. Will medically clear the patient, and contact mental health for assessment. Patient is requesting transfer to an inpatient facility like [place]. Quality:SDOH Health Related Social Needs: Health related social needs house/econ circumstance PFSH All Active Problems (Updated 05/21/25 @ 07:25 by Krishna Law DO) Suicide ideation (Acute) Hallucinations (Acute) Social History Smoking/Tobacco Use Status: Current-Occasional Tobacco Type: cigarettes Smoking risk assessment performed?: Yes Alcohol Intake: current Alcohol Intake frequency: 3 or more drinks per day Alcohol type: beer and hard liquor Drug use: Occasionally Substance use type: marijuana, crack/cocaine, heroin, opiates and painkillers Housing: homeless Do you feel safe at home: Yes Do you feel safe in your relationship?: Yes PAWSS Have you Been Recently Intoxicated or Drunk Within the Last 30 days?: Yes Have you Ever Experienced Previous Episodes of Alcohol Withdrawal?: Yes Have you ever Experienced Withdrawal Seizures?: Yes Have you ever Experienced Delirium Tremens(DT)s?: Yes Have you ever undergone Alcohol Rehabilitation Treatment (i.e, inpt ot outpatient treatment programs)?: Yes Have you ever Experienced Blackouts?: Yes Have you ever Combined Alcohol with other Downers within the last 90 days?: Yes Have you ever Combined Alcohol with any other Substance of Abuse during the last 90 days?: Yes Positive Blood Alcohol level on Presentation? [PCS.BAL]: Unable to Obtain Evidence of Increased Autonomic Activity (i.e. HR>120, tremor, sweating, agitation, nausea)?: No Result: 8
[2025-05-21 06:18] LABS: Abs Immature Grans 0.02 10^3/uL (0.0-0.06); HCT 39.0 % (40.0-50.0); HGB 13.3 g/dL (13.5-17.5); Immature Grans % 0.3 %; MCH 29.9 pg (27.0-33.0); MCHC 34.1 % (32.0-36.0); MCV 88 fL (80-95); MPV 9.4 fL (8.0-11.0); Platelet Count 280 10^3/uL (130-400); RBC 4.45 10^6/uL (4.36-5.78); RDW 12.5 % (11.8-14.1); RDW-SD 39.8 fL; WBC 7.47 10^3/uL (4.4-10.8)
[2025-05-21 07:00] LABS: Salicylate < 2.8 mg/dL (<2.8)
[2025-05-21 07:08] LABS: Acetaminophen < 2 ug/mL (10-30)
[2025-05-21 07:22] LABS: ALT 33 U/L (16-63); AST 36 U/L (15-37); Albumin 4.0 g/dL (3.4-5.0); Alkaline Phosphatase 81 U/L (46-116); Anion Gap 8.5 mmol/L (3-11); BUN 22 mg/dL (7-18); Bilirubin, Total 0.3 mg/dL (0.2-1.0); CO2 30.5 mmol/L (21.0-32.0); Calcium 9.6 mg/dL (8.5-10.1); Chloride 102 mmol/L (98-107); Estimated GFR 75.06 (mL/min/1.73m2); Glucose 131 mg/dL (74-106); Potassium 3.4 mmol/L (3.5-5.1); Sodium 141 mmol/L (136-145); TSH (W/Ref FT4) 0.56 uIU/mL (0.36-3.74); Total Protein 7.7 g/dL (6.4-8.2)
--- NOTE | 2025-05-21 08:37 | ED.PSYCHBOAR ---
Date of service: 05/21/25 Time of Service: 08:00 Psychiatric Border Handoff Update Brief Story: This is a 45-year-old male patient presenting for evaluation of suicidal ideation and visual hallucinations. Prior to my taking over their care, the patient was medically cleared, and has been resting comfortably. They have met with the manager social responsibility and we are awaiting final dispo. They have not required any additional medications for restraint or sedation. They have been admitted to ED psych observation. The patient was signed out to the oncoming provider prior to final disposition. Remained hemodynamically appropriate, calm, cooperative, and comfortable while under my care. Jessi Aly MD Status: voluntary Able to leave: would need physician/MIRELA and crisis evaluation prior to leaving Behavioral Concerns: None Potential Disposition: Inpatient psychiatric treatment Barriers to Disposition: Awaiting placement Discharge Plan Discharge Details Chief Complaint: PsychEval Clinical Impression: Hallucinations, Suicide ideation Primary Care Provider: Yakelin Berkowitz ED Provider: Jessi Aly Home Meds and New Rx's Prescriptions: No Action gabapentin 300 mg Tablet 600 mg PO TID trazodone 100 mg tablet 50 mg PO QHS PRN quetiapine [Seroquel] 25 mg tablet 25 mg PO PRN hydroxyzine HCl 50 mg tablet 50 mg PO PRN Rx Instructions: Anxiety lisdexamfetamine [Vyvanse] 20 mg capsule 20 mg PO DAILY buprenorphine-naloxone [Suboxone] 8-2 mg film 1 film sublingual DAILY methadone 10 mg/mL concentrate 150 mg PO DAILY Patient Comments: 150 mg daily, dose verified Donya 10/06/24
[2025-05-21] MEDS: Acetaminophen 500 MG TAB 1000 MG PO (15:45)
--- NOTE | 2025-05-21 16:08 | PDOC.MHCN ---
Date of service: 05/21/25 Time of Service: 11:35 PHQ-9 Over the last 2 weeks, how often have you been bothered by any of the following problems? 1. Little interest or pleasure in doing things: more than half the days 2. Feeling down, depressed, or hopeless: several days 3. Trouble falling or staying asleep, or sleeping too much: more than half the days 4. Feeling tired or having little energy: several days 5. Poor appetite or overeating: more than half the days 6. Feeling bad about yourself - or that you are a failure or have let yourself and your family down: several days 7. Trouble concentrating on things, such as reading the newspaper or watching television: several days 8. Moving or speaking so slowly that other people could have noticed? - Or the opposite - being so fidgety or restless that you have been moving around a lot more than usual: several days 9. Thoughts that you would be better off or of hurting yourself in some way: not at all Total score: 11 Source: Developed by Drs. Pj Urias, Jie Velarde, David Mckeon and colleagues, with an educational jaqui from [employer]. Suicide Severity Rate CSSRS Have you wished you were or wished you could go to sleep and not wake up?: Yes Have you actually had any thoughts of killing yourself?: Yes CSSRS2 Have you been thinking about how you might do this?: Yes Have you had these thoughts and had some intention of acting on them?: Yes Have you started to work out or worked out the details of how to kill yourself? Do you intend to carry out this plan?: Yes CSSRS3 Have you ever done anything, started to do anything or prepared to do anything to end your life?: Yes CSSRS4 Was this within the past three months?: No Screening Score Total Score: 6 Screening: Positive Mental Health Emergency Note Release [facility] release signed:: No Reason for Visit Suicidal ideation with intent, access, plan. Auditory and visual hallucinations. Depression. In the last 2 weeks has the pt presented for ES prior to today?: Unknown Client Information Client is: Substance use and New Well Housed: No,status: Homeless Stable housing Non Suicidal Self Injury Current: No History: No Safety Risk/Harm to Self or Others Current Ideation to Harm Self or Others: Yes to self. Intent: yes, has intent. Plan: yes,has a plan. History of suicide attempt: yes,history of suicide attempt reported. Details of previous suicide attempt: Intentional overdose - fentanyl (self report) Risk: Does risk to harm exist?: yes. Access to means: Yes. Types of Means: Other (Illicit substances). Risk: High Risk Duty to warn indicated: No Asssessment/Mental Status Appearance: Disheveled and Poor hygiene Attitude: Cooperative and Passive Behavior: Unremarkable Speech: Soft, Slow and Other Affect: Cogruent with mood Mood: Depressed Thought process: Circumstational and Poverty of content Hallucinations: yes, Visual and Auditory Delusions: No evidence Attention: Inattention and Poor concentration Perception: Not impaired Orientation: Fully orientated Memory: Intact Insight: Fair Judgement: Fair Neurovegetative Symptoms Sleep: Decrease Appetitie: Decrease Interests: Decrease Energy: Decrease Libido: No change Substance Use: Other Drug Issues: Dependence Do you use nicotine?: No Have you used substances in the last 7 days?: yes, Illicit substances, prefers fentanyl Additional Issues: Assaultive/Threatening Behavior: No Medical Concerns: No Client engaged in active self harm w/weapon: No Threatening to run away: No Child reported abuse/neglect: No Voluntarily presenting for services: Yes Domestic violence is a concern: No Extreme Psychosis or extreme behavior is present: No Impression Client is a 45-year-old male, single, and currently unemployed, who is experiencing homelessness in the [facility]. He is known to [facility], though he is listed as inactive at the time of assessment and is new to Clinician. During the in-person assessment at [facility], Clinician evaluated Client for suicidal ideation, hallucinations, and depression. Client demonstrated signs of latency and frequently provided unintelligible responses. Clinician observed that several questions required repetition due to Client's sudden dozing, inattention, and poor concentration. Client appeared calm and cooperative, yet he was overly sleepy and difficult to comprehend, likely attributed to his soft-spoken manner and poor diction. He did not voluntarily offer information, which limited the scope of his answers. Throughout the assessment, Client remained in a right lateral position. He reported experiencing auditory and visual hallucinations, acknowledging that these symptoms could be exacerbated by his excessive tiredness. Client affirmed a high level of suicidality, rating it at 6:6, with clear intent and access to means within the community. He presented a significant risk to himself due to his suicidal thoughts, plans, actions, and intent. Additionally, Client disclosed a prior suicide attempt by intentional overdose on illicit drugs, stating that he would utilize the same method should he have the opportunity again. He reported having no ties to the community, reinforcing his status as homeless with limited or no resources. Plan/Disposition Recommended Disposition: Hospitalization facilities contacted. Facilities contacted if Applicable [facility] Not accepted, No bed available [facility] Not accepted, No bed available, [facility] Not accepted, No bed available [facility] Not accepted, No bed available [facility] Not accepted, No bed available Reports/communication Outcome discussed with: ED/Personnel
--- NOTE | 2025-05-21 17:35 | PDOC.CMSAFE ---
Date of service: 05/21/25 Time of Service: 17:36 Care Management Safety Plan Status Status: Voluntary Reason for Wait Reason for Wait: Inpatient Admission Safety Plan Safety Plan: VOLUNTARY FOR INPATIENT PSYCHIATRIC STABILIZATION.? Patient is appropriate in all interactions since arriving at [facility]; Pt has demonstrated appropriate coping and communication skills, has articulated his needs and concerns and is fully engaged during staff interactions. Safety plan has been established with patient, and care team, to adhere to patient goals, identify restrictions based on behavioral status, address nutrition, and determine allowed personal belongings, tools for hygiene and personal care. Determine level of activity including ambulation, level of supervision, visitors, and determine privileges based on behaviors and level of engagement by pt. VOLUNTARY SAFETY PLAN: 1. Will remain on suicide precautions, in paper clothes 2. Will remain in Zone B under direct supervision of one-on-one staff at all times provided by [employer]; GARY, NURSE HEALTHCARE MANAGER respite coordinator. 3. May have paper cups, plates, finger foods as well as a cardboard spoon with which to eat meals. 4. Follow [facility] Management of the Admitted Behavioral Health Patient policy. 5. Shower available in Zone B without restriction. 6. Personal belongings-soft items permitted at RN discretion. 7. Visitors-none at this time. 8. Activities: soft cart items approved per RN discretion. 9.? Bathroom available in Zone B without restriction. 10. Phone: limited to [facility] cordless phone at RN discretion. Due to VOLUNTARY status, if patient wishes to leave [facility], staff will contact [facility] Crisis Screener ([phone]) and Train Master ([phone]) as soon as possible. In the event of elopement, notify [facility] Police ([phone]).
--- NOTE | 2025-05-21 17:36 | CMPROGNOTE_ITS ---
Date of service: 05/21/25 Time of Service: 17:36 Care Management Progress Note Progress Note Text Progress Note Text: CM met with ED RN and GARY to discuss Chapo's plan of care. Per report, Chapo has been appropriate, and sleeping a lot. Per report, he was recently released from half-way, and has not been taking his medications for about a week. Chapo is voluntary, seeking inpatient psychiatric treatment. Referrals are being sent today by [facility]. Safety plan in place while waiting for treatment; CM will continue to follow. Social Determinants of Health Screening Will the Patient Participate in the Screening?: Declined to provide
[2025-05-21 21:12] VITALS: BP 93/51; PULSE 45; TEMP 36.1; O2SAT 95
[2025-05-21 22:41] VITALS: BP 110/70; PULSE 60; RESP 18
[2025-05-22] MEDS: Potassium Chloride Liquid 20 MEQ PKT PO (00:06)
[2025-05-22 01:01] LABS: Cannabinoids THC Positive (Negative); METHADONE URINE SCREEN Negative (Negative)
[2025-05-22 03:03] VITALS: BP 108/62; RESP 18
--- NOTE | 2025-05-22 08:30 | ED.PROG1_ITS ---
Date of service: 05/22/25 Time of Service: 08:30 Psychiatric Border Handoff Update Brief Story: Patient here with suicidality. Status: voluntary Behavioral Concerns: none Potential Disposition: Transfer to [facility] Barriers to Disposition: none Medical Concerns: none Mediation Reconciliation performed: Yes Code Status ordered: Yes Diet ordered: Yes Discharge Plan Disposition Patient Disposition: Psychiatric Hospital/Unit Specific Psychiatric Facility: [facility]3] Discharge Details Clinical Impression: Hallucinations, Suicide ideation Primary Care Provider: Yakelin Berkowitz ED Provider: Bert Bartholomew [place] Meds and New Rx's Prescriptions: No Action gabapentin 300 mg Tablet 600 mg PO TID trazodone 100 mg tablet 50 mg PO QHS PRN quetiapine [Seroquel] 25 mg tablet 25 mg PO PRN hydroxyzine HCl 50 mg tablet 50 mg PO PRN Rx Instructions: Anxiety lisdexamfetamine [Vyvanse] 20 mg capsule 20 mg PO DAILY buprenorphine-naloxone [Suboxone] 8-2 mg film 1 film sublingual DAILY methadone 10 mg/mL concentrate 150 mg PO DAILY Patient Comments: 150 mg daily, dose verified leena/JOVANI 10/06/24 Discharge Data Discharge Date/Time-TO BE ENTERED AT DEPARTURE: 05/22/25 13:59
[2025-05-22] MEDS: Buprenorphine/Naloxone 8 mg/2 mg FILM 1 EACH SL (08:46)
[2025-05-22 08:49] VITALS: BP 107/65; PULSE 70
--- NOTE | 2025-05-22 09:17 | PDOC.CMSAFE ---
Date of service: 05/22/25 Time of Service: 09:17 Care Management Safety Plan Status Status: Voluntary Reason for Wait Reason for Wait: Inpatient Admission Safety Plan Safety Plan: VOLUNTARY FOR INPATIENT PSYCHIATRIC STABILIZATION.? Patient is appropriate in all interactions since arriving at [facility]; Pt has demonstrated appropriate coping and communication skills, has articulated his needs and concerns and is fully engaged during staff interactions. Safety plan has been established with patient, and care team, to adhere to patient goals, identify restrictions based on behavioral status, address nutrition, and determine allowed personal belongings, tools for hygiene and personal care. Determine level of activity including ambulation, level of supervision, visitors, and determine privileges based on behaviors and level of engagement by pt. VOLUNTARY SAFETY PLAN: 1. Will remain on suicide precautions, in paper clothes 2. Will remain in Zone B under direct supervision of one-on-one staff at all times provided by [employer]; GARY, WEATHERIZATION FIELD TECHNICIAN railroad inspector. 3. May have paper cups, plates, finger foods as well as a cardboard spoon with which to eat meals. 4. Follow [facility] Management of the Admitted Behavioral Health Patient policy. 5. Shower available in Zone B without restriction. 6. Personal belongings-soft items permitted at RN discretion. 7. Visitors-none at this time. 8. Activities: soft cart items approved per RN discretion. 9.? Bathroom available in Zone B without restriction. 10. Phone: limited to [facility] cordless phone at RN discretion. Due to VOLUNTARY status, if patient wishes to leave [facility], staff will contact [facility] Crisis Screener ([phone]) and [employer] ([phone]) as soon as possible. In the event of elopement, notify [facility] Police ([phone]).
--- NOTE | 2025-05-22 09:18 | CMPROGNOTE_ITS ---
Date of service: 05/22/25 Time of Service: 09:18 Care Management Progress Note Progress Note Text Progress Note Text: CM communicated with [facility] RN regarding Ann Mariechata's plan of care. He is endorsing [facility]. Per [facility], referrals are sent. Janet is reviewing the referral and it is anticipated he will be discharged there for inpatinet treatment. CM will continue to follow. Status Status: Voluntary Social Determinants of Health Screening Will the Patient Participate in the Screening?: Declined to provide
--- NOTE | 2025-05-22 16:46 | MHPN_ITS ---
Date of service: 05/22/25 Time of Service: 10:30 Mental Health Emergency Note Release [facility] release signed:: No Reason for Visit Suicidal, hallucinations In the last 2 weeks has the pt presented for ES prior to today?: Unknown Client Information Client is: Substance use and New Well Housed: No,status: Homeless Stable housing Non Suicidal Self Injury Current: No History: No Safety Risk/Harm to Self or Others Current Ideation to Harm Self or Others: Yes to self. Intent: yes, has intent. Plan: yes,has a plan. History of suicide attempt: yes,history of suicide attempt reported. Details of previous suicide attempt: Illicit substances Risk: Risk: High Risk Asssessment/Mental Status Appearance: Disheveled and Poor hygiene Attitude: Cooperative Behavior: Unremarkable Speech: Soft Affect: Cogruent with mood Mood: Depressed Thought process: Circumstational and Poverty of content Hallucinations: No evidence Delusions: No evidence Attention: Inattention Perception: Not impaired Orientation: Fully orientated Memory: Intact Insight: Fair Judgement: Fair Neurovegetative Symptoms Sleep: Decrease Appetitie: No change Interests: Decrease Energy: Decrease Libido: No change Substance Use: Drug Issues: Dependence Additional Issues: Assaultive/Threatening Behavior: No Medical Concerns: No Client engaged in active self harm w/weapon: No Threatening to run away: No Child reported abuse/neglect: No Voluntarily presenting for services: Yes Domestic violence is a concern: No Extreme Psychosis or extreme behavior is present: No Impression Client is a 45-year-old male, single, and currently unemployed, who is experiencing homelessness in the [facility]. He is known to [facility], though he is listed as inactive at the time of assessment and is new to Clinician. During the in-person assessment at [facility], Clinician evaluated Client for suicidal ideation, hallucinations, and depression. Client demonstrated signs of latency and did not rise for reassessment. Responses were limited with simple affirmation of exhaustion, persistent suicidal thoughts and depression. Throughout the assessment, Client remained in a left lateral position covered with a blanket. Client affirmed a high level of suicidality, rating it at 6:6, with clear intent and access to means within the community. He presented a significant risk to himself due to his suicidal thoughts, plans, actions, and intent.? Plan/Disposition Recommended Disposition: Hospitalization facilities contacted. Person reported agreement to plan: Yes Reports/communication Outcome discussed with: ED/Personnel
== END 2025-05-22 13:59 ==
PROVIDERS: Student in an Organized Health Care Education/Training Program; Emergency Provider Student in an Organized Health Care Education/Training Program; PCP Nurse Practitioner Family
DX: R44.1 Visual hallucinations (principal); R45.851 Suicidal ideations
CPT/HCPCS: 00123; 80053; 80307; 96127; 99285; 80320; 80329; 84443; 85025